=== PATIENT | female | born 1950 | race Caucasian/White ===

== ENCOUNTER 2017-01-22 15:32 | Emergency (ER) | payer MEDICARE ==
[~2017-01-22] VITALS: Ht 175.3 cm; Wt 62.0 kg
[~2017-01-22 15:32] MED LIST: ASPI81TA82 PO; BRIM.2%O OU; CARD240C6 PO; COUM5TAB PO; DORZ1SOL2 OU; FLEC50TA PO; LEVO75TA42 PO; METO25 PO; OXYB5TAB PO; PROT40TA PO; TORS20TA PO; ZOLO50TA PO
[2017-01-22 15:39] VITALS: BP 133/87; PULSE 82; RESP 15; TEMP 98; O2SAT 100
[2017-01-22] MEDS ORDERED: DOFE250 PO (15:51)
[2017-01-22] MEDS ORDERED: FLUT1INH INH (15:51)
[2017-01-22] MEDS ORDERED: WARF-23 PO (15:51)
[2017-01-22] MEDS ORDERED: LEVO75TA3 PO (15:51)
[2017-01-22] MEDS ORDERED: METO50TA PO (15:51)
[2017-01-22] MEDS ORDERED: OXYB5TAB10 PO (15:51)
[2017-01-22] MEDS ORDERED: SERT-132 PO (15:51)
[2017-01-22] MEDS ORDERED: TORS5TAB2 PO (15:51)
[2017-01-22] MEDS ORDERED: ASPI1TAB69 PO (15:51)
[2017-01-22] MEDS ORDERED: ACETAMINOPHEN/HYDROcodone 325 MG/5 MG TAB PO ONE (16:00)
--- NOTE | 2017-01-22 16:05 | PD ---
HPI Chief Complaint: Skin Problem Time Seen by Provider: 15:30 (Dorita Mcnair) Time Seen by Provider: 18:22 (Ponce Snyder MD) Travel History International Travel<30 days: No Contact w/Intl Traveler<30days: No Traveled to known affect area: No (Dorita Mcnair) International Travel<30 days: No Contact w/Intl Traveler<30days: No (Ponce Snyder MD) History of Present Illness HPI 66-year-old female presents to the emergency room for evaluation of hard, painful to her left medial antecubital space. Patient had an IV placed 11 [address] scan and states since then she has had increasing swelling in the area. The pain was manageable until yesterday when it became significantly worse. Pain is exacerbated with any range of motion of the left arm. It starts in the antecubital space and radiates downward and up to her shoulder. She denies paresthesias. She has not taken anything or done anything for her symptoms. She applied ice once but states it did not seem to help. She denies fever, chills, nausea, and vomiting. Patient takes Coumadin for A. fib, valve, and aneurysms. (Dorita Mcnair) HPI Please refer to TREVOR note. (Ponce Snyder MD) PFSH Past Medical History Hx Anticoagulant Therapy: Yes Arthritis: Yes Atrial Fibrillation: Yes Autoimmune Disease: No Blood Disorders: No Heart Rhythm Problems: Yes Cancer: No Cardiac Catheterization: Yes Cardiovascular Problems: Yes High Cholesterol: No Chest Pain: No Congestive Heart Failure: No Coronary Artery Disease: Yes Diabetes: No Diminished Hearing: No Endocrine: No Gastrointestinal Disorders: Yes Glaucoma: Yes Genitourinary: No Hepatitis: No Hiatal Hernia: No Hypertension: Yes Immune Disorder: No Musculoskeletal: No Neurologic: No Psychiatric: No Reproductive: No Respiratory: Yes Immunizations Current: Yes Myocardial Infarction: No Thyroid Disease: Yes Influenza Vaccination: Yes ?: Not Menopausal: Yes Tubal Ligation: Yes (Dorita Mcnair) Past Surgical History Abdominal Aneurysm Repair: Yes (AORTIC ANEURYSM REPAIR DECEMBER 2006) Abdominal Surgery: Yes (THORACIC, AORTIC ANEURYSM REPAIR) AICD: Yes (PACEMAKER DEFIB) Cardiac Surgery: Yes (AICD PLACEMENT) Ear Surgery: No Endocrine Surgery: No Eye Surgery: No Genitourinary Surgery: No Neurologic Surgery: No Oral Surgery: No Pacemaker: Yes Thoracic Surgery: Yes (ASCENDING THORACIC ANEURYSM REPAIR) Valve Replacement: Yes (AORTIC VALVE REPLACEMENT) Other Surgery: Yes (TUBILATION, AOTIC VALVE REPLACEMENT) (Dorita Mcnair) Family History Family Myocardial Infarction: Yes (dad and brother) (Dorita Mcnair) Social History Alcohol Use: Yes ([facility]) Tobacco Use: No Substance Use: No (Dorita Mcnair) Allergies-Medications (Allergen,Severity, Reaction): Coded Allergies: Rocephin (Verified Allergy, Severe, RASH/HIVES, 01/22/17) Reported Meds & Prescriptions Reported Meds & Active Scripts Active Clindamycin (Clindamycin HCl) 150 Mg Cap 450 Mg PO Q8HR 10 Days Percocet (Oxycodone-Acetaminophen) 5-325 mg Tab 2 Tab PO Q6H PRN Reported Breo Ellipta Inh (Fluticasone/Vilanterol) 100-25 Mcg/Act Inh 1 Puff INH DAILY Use daily at the same time. Aspirin 81 Mg Tabdr 81 Mg PO DAILY Sertraline (Sertraline HCl) 50 Mg Tab 50 Mg PO DAILY Warfarin 5 Mg Tab 5 Mg PO DAILY Torsemide 5 Mg Tab 5 Mg PO DAILY Levothyroxine (Levothyroxine Sodium) 75 Mcg Tab 75 Mcg PO DAILY Ditropan (Oxybutynin Chloride) 5 Mg Tab 5 Mg PO Q12HR Metoprolol Tartrate 50 Mg Tab 50 Mg PO BID Tikosyn (Dofetilide) 250 Mcg Cap 250 Mcg PO BID For Creatinine Clearance 40-60 mL/min (Ponce Snyder MD) Review of Systems Except as stated in HPI: all other systems reviewed are Neg (Dorita Mcnair) Physical Exam Narrative GENERAL: Well-nourished, well-developed female in no acute distress. Afebrile. Ambulatory. SKIN: Focused skin assessment warm/dry. There is an indurated area in the left antecubital space which measures about 4 cm in diameter. There is no erythema, fluctuance, or lymphangitis. It is extremely tender to palpation. HEAD: Normocephalic. EYES: No scleral icterus. No injection or drainage. NECK: Supple, trachea midline. No JVD or lymphadenopathy. CARDIOVASCULAR: Regular rate and rhythm without murmurs, gallops, or rubs. RESPIRATORY: Breath sounds equal bilaterally. No accessory muscle use. EXTREMITY: Left antecubital space tender to palpation. Limited range of motion secondary to pain. There is a large for secondary area of induration. 2+ radial pulse. (Dorita Mcnair) Narrative Approx 4 cm area of swelling and induration is minimal ecchymosis just proximal and medial to the antecubital fossa on the left side. 2+ radial artery pulse bilaterally. median/radial/ulnar nerve sensory distributions intact. (Ponce Snyder MD) Data Data Last Documented VS Vital Signs Date Time Temp Pulse Resp B/P Pulse Ox O2 Delivery O2 Flow Rate FiO2 01/22/17 17:40 90 16 152/94 97 01/22/17 15:39 98.0 (Ponce Snyder MD) Orders Acetamin-Hydrocod 325-5 Mg ([place] 5-325 (01/22/17 16:00) Us Arm Venous Doppler (01/22/17 ) Prothrombin Time / Inr (Pt) (01/22/17 17:38) ^ Jmain Bandage (01/22/17 18:22) Ice/Cold Pack (01/22/17 18:22) (Ponce Snyder MD) Labs Laboratory Tests Test 01/22/17 17:45 Prothrombin Time 31.9 SEC Prothromb Time International 2.8 RATIO Ratio (Ponce Snyder MD) Labs Laboratory Tests Test 01/22/17 17:45 Prothrombin Time 31.9 SEC Prothromb Time International 2.8 RATIO Ratio (Dorita Mcnair) MDM Medical Decision Making Medical Screen Exam Complete: Yes Emergency Medical Condition: Yes Medical Record Reviewed: Yes Differential Diagnosis Hematoma versus abscess versus compartment syndrome unlikely Narrative Course 66-year-old female presents to the emergency room for evaluation of painful hard area to her left antecubital space. She first noticed 11 days after having an IV placed but states it didn't become painful until yesterday. Patient denies fever, chills, nausea, vomiting. Since stable. Resting comfortably in bed. Left upper extremity as her respiratory treatment with radial pulse. Limited range of motion secondary to pain. There is a 4 cm area of induration left and acute. It is extremely tender to palpation. No evidence of infection. No erythema, lymphangitis, inflammation, or warmth. Ultrasound shows evidence of possible abscess or hematoma. Given history and physical exam this is likely hematoma. Patient is on Coumadin and therapeutic at 2.8. I spoke to my attending physician, Dr. Snyder, who assessed the patient and agree she is stable for outpatient follow-up. She will be placed on pain medication and antibiotics and told to follow up with a primary care physician or return to the emergency room forcing symptoms. She understands and agrees to this plan. (Dorita Mcnair) Medical Screen Exam Complete: Yes Emergency Medical Condition: Yes Differential Diagnosis hematoma, abscess, compartment syndrome, neurovascular compromise Narrative Course Last 24 hours Impressions Upper Extremity Ultrasound 01/22/17 0000 Signed Impressions: Service Date/Time: Sunday, January 22, 2017 16:10 - CONCLUSION: 1. Negative for deep venous thrombosis. There is a mixed echogenicity mass in the left antecubital fossa measuring up to 6.1 x 2.7 x 2.2 cm. This could represent inflammatory phlegmonous mass or hematoma. Benji Cummings MD INR 2.9 Ice pain control elevation and discussed. The patient likely has a hematoma. She is to continue with current warfarin as scheduled. Jamin wrap as tolerated. Abscess is considered much much less likely. Patient has drug interactions with Bactrim and is allergic to cephalosporin so we'll provide a course of clindamycin for any potential cellulitis or abscess formation. Return precautions discussed. (Ponce Snyder MD) Diagnosis Primary Impression: Hematoma Referrals: Primary Care Physician 2 days Additional Instructions: You have a choice when it comes to health care, and we are glad that you chose [facility]. Hopefully, we have met your expectations on today's visit. You are welcome to return to [facility] at any time, as we are committed to meeting the health care needs of our community. Med/Other Pt SpecificInfo: Prescription(s) given (Ponce Snyder MD) Scripts Clindamycin 150 Mg Neg213 Mg PO Q8HR 10 Days Ref 0 Prov:Ponce Snyder MD 01/22/17 Oxycodone-Acetaminophen (Percocet)5-325 mg Tab2 Tab PO Q6H PRN (PAIN SCALE 6 TO 10) #20 TAB Ref 0 Prov:Ponce Snyder MD 01/22/17 Disposition: 01 DISCHARGE HOME Condition: Stable Dorita Mcnair January 22, 2017 16:05 Ponce Snyder MD January 22, 2017 18:27
--- NOTE | 2017-01-22 17:12 | RADHPO ---
EXAM DATE/TIME: 01/22/2017 16:10 [facility] COMPARISON: No previous studies available for comparison. INDICATIONS : Left arm pain. Patient had IV in left arm the end of December at [facility] for a CT Scan. MEDICAL HISTORY : Hypertension. Thyroid disease. Descending aortic aneurysm. SURGICAL HISTORY : AICD. Aortic valve replacement. Descending aortic aneurysm repair. ENCOUNTER: Initial ACUITY: 2 day PAIN SCORE: 8/10 LOCATION: Left arm. FINDINGS: There is spontaneous flow documented in the brachial, basilic, cephalic, axillary, and subclavian vei ns. The vessels are compressible and augmentation response is documented. No filling defects are se en. The flow is phasic with respiration. Direction of flow in the jugular vein is caudal. CONCLUSION: 1. Negative for deep venous thrombosis. There is a mixed echogenicity mass in the left antecubital fo ssa measuring up to 6.1 x 2.7 x 2.2 cm. This could represent inflammatory phlegmonous mass or hematom a. Benji Cummings MD on January 22, 2017 at 17:09 Board Certified Radiologist. This report was verified electronically.
[2017-01-22 17:40] VITALS: BP 152/94; PULSE 90; RESP 16; O2SAT 97
[2017-01-22 18:06] LABS: INTERNATIONAL NORMALIZED RATIO 2.8 RATIO; PROTHROMBIN TIME - PATIENT 31.9 SEC (9.8-11.6)
[2017-01-22] MEDS ORDERED: CLIN1CAP5 PO (18:24)
[2017-01-22] MEDS ORDERED: PERC5TAB12 PO (18:24)
--- NOTE | 2017-01-22 18:25 | PD ---
Data Data Last Documented VS Vital Signs Date Time Temp Pulse Resp B/P Pulse Ox O2 Delivery O2 Flow Rate FiO2 01/22/17 17:40 90 16 152/94 97 01/22/17 15:39 98.0 Orders Acetamin-Hydrocod 325-5 Mg ([place] 5-325 (01/22/17 16:00) Us Arm Venous Doppler (01/22/17 ) Prothrombin Time / Inr (Pt) (01/22/17 17:38) Labs Laboratory Tests Test 01/22/17 17:45 Prothrombin Time 31.9 SEC Prothromb Time International 2.8 RATIO Ratio [facility] Medical Record Reviewed: Yes Supervised Visit with TREVOR: Yes Narrative Course INR 2.8 The patient is resting comfortably and feels better, is alert and in no distress. The patients results and examination findings were discussed. The repeat examination is unremarkable and benign. The history, exam, diagnostic testing, and current condition do not suggest any significant pathology to warrant further testing, continued ED treatment, admission, or surgical evaluation at this point. The vital signs have been stable. The patient does not have uncontrollable pain, intractable vomiting, or other significant symptoms. The patient's condition is stable and appropriate for discharge. The patient will pursue further outpatient evaluation with a primary care physician or other designated or consulting physician as indicated in the discharge instructions. The patient expressed understanding and was agreeable with this plan. Diagnosis Primary Impression: Hematoma Referrals: DR ANGELA Townsend 2 days Additional Instruction: You have a choice when it comes to health care, and we are glad that you chose [facility]. Hopefully, we have met your expectations on today's visit. You are welcome to return to [facility] at any time, as we are committed to meeting the health care needs of our community. Med/Other Pt SpecificInfo: Prescription(s) given Scripts Clindamycin 150 Mg [id number] Mg PO Q8HR 10 Days Ref 0 Prov:Ponce Snyder MD 01/22/17 Oxycodone-Acetaminophen (Percocet)5-325 mg Tab2 Tab PO Q6H PRN (PAIN SCALE 6 TO 10) #20 TAB Ref 0 Prov:Ponce Snyder MD 01/22/17 Disposition: 01 DISCHARGE HOME Condition: Stable Ponce Snyder MD January 22, 2017 18:25
== END 2017-01-22 18:40 | disposition home or self-care (01) ==
LOC: PHEFT 15:32
DX: S50.12XA Contusion of left forearm, initial encounter (principal); I48.91 Unspecified atrial fibrillation; I25.10 Atherosclerotic heart disease of native coronary artery without angina pectoris; I10 Essential (primary) hypertension; E07.9 Disorder of thyroid, unspecified; Z95.0 Presence of cardiac pacemaker; Z79.01 Long term (current) use of anticoagulants
CPT/HCPCS: 85610; 93971

== ENCOUNTER 2017-02-09 06:26 | Inpatient (IN) | payer MEDICARE ==
[2017-02-09] VITALS (15 sets, daily range): BP systolic 96–112; BP diastolic 50–73; PULSE 92–146; RESP 16–25; TEMP 97.7–99.1; O2SAT 91–100
[~2017-02-09] VITALS: Ht 175.3 cm; Wt 63.0 kg
[~2017-02-09 06:26] MED LIST changes: +ASPI1TAB69 PO; -ASPI81TA82 PO; -BRIM.2%O OU; -CARD240C6 PO; +CLIN1CAP5 PO; -COUM5TAB PO; +DOFE250 PO; -DORZ1SOL2 OU; -FLEC50TA PO; +FLUT1INH INH; +LEVO75TA3 PO; -LEVO75TA42 PO; -METO25 PO; +METO50TA PO; -OXYB5TAB PO; +OXYB5TAB10 PO; +PERC5TAB12 PO; -PROT40TA PO; +SERT-132 PO; -TORS20TA PO; +TORS5TAB2 PO; +WARF-23 PO; -ZOLO50TA PO
[2017-02-09] MEDS ORDERED: OXYBXL5 PO (06:45)
[2017-02-09] MEDS ORDERED: DILTIAZEM HCL 25 MG/5 ML VIAL IV PUSH ONE (06:45)
[2017-02-09] MEDS ORDERED: ASPI81CH CHEW (06:45)
[2017-02-09] MEDS ORDERED: SODIUM CHLORIDE 0.9% FLUSH 10 ML FLUSH IVF PRN (06:45)
--- NOTE | 2017-02-09 06:57 | PD ---
HPI Chief Complaint: Respiratory Symptoms Time Seen by Provider: 06:41 Travel History International Travel<30 days: No Contact w/Intl Traveler<30days: No Traveled to known affect area: No History of Present Illness HPI 66yo F with PMH of CAD with left main aneurysm, Vfib s/p AICD, aortic insufficiency s/p aortic valve replacement, hypothyroidism, HTN, s/p ascending aortic aneurysm repair, paroxysmal afib on coumadin presents to the ED with c/o palpitations and feeling her heart race since last night. Pt has also been feeling sob. She was recently diagnosed with pneumonia and just started levaquin yesterday. 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 +Productive cough for 10 days. +Nausea. Denies any fever, chest pain, vomiting, abdominal pain, focal weakness or numbness. PFSH Past Medical History Hx Anticoagulant Therapy: Yes (warfarin) Arthritis: Yes Atrial Fibrillation: Yes Autoimmune Disease: No Blood Disorders: No Heart Rhythm Problems: Yes Cancer: No Cardiac Catheterization: Yes Cardiovascular Problems: Yes High Cholesterol: No Chest Pain: No Congestive Heart Failure: No Coronary Artery Disease: Yes Diabetes: No Diminished Hearing: No Endocrine: No Gastrointestinal Disorders: Yes Glaucoma: Yes Genitourinary: No Hepatitis: No Hiatal Hernia: No Hypertension: Yes Immune Disorder: No Musculoskeletal: No Neurologic: No Psychiatric: No Reproductive: No Respiratory: Yes Immunizations Current: Yes Myocardial Infarction: No Thyroid Disease: Yes ?: Not Menopausal: Yes Tubal Ligation: Yes Past Surgical History Abdominal Aneurysm Repair: Yes (AORTIC ANEURYSM REPAIR DECEMBER 2006) Abdominal Surgery: Yes (THORACIC, AORTIC ANEURYSM REPAIR) AICD: Yes (PACEMAKER DEFIB) Cardiac Surgery: Yes (AICD PLACEMENT) Ear Surgery: No Endocrine Surgery: No Eye Surgery: No Genitourinary Surgery: No Neurologic Surgery: No Oral Surgery: No Pacemaker: Yes Thoracic Surgery: Yes (ASCENDING THORACIC ANEURYSM REPAIR) Valve Replacement: Yes (AORTIC VALVE REPLACEMENT) Other Surgery: Yes (TUBILATION, AOTIC VALVE REPLACEMENT) Family History Family Myocardial Infarction: Yes (dad and brother) Social History Alcohol Use: Yes (occ) Tobacco Use: No Substance Use: No Allergies-Medications (Allergen,Severity, Reaction): Coded Allergies: Rocephin (Verified Allergy, Severe, RASH/HIVES, 02/09/17) Reported Meds & Prescriptions Reported Meds & Active Scripts Active Reported Ditropan XL 24 HR (Oxybutynin Chloride) 5 Mg Tab 5 Mg PO DAILY Aspirin 81 Mg Chew 81 Mg CHEW DAILY Breo Ellipta Inh (Fluticasone/Vilanterol) 100-25 Mcg/Act Inh 1 Puff INH DAILY Use daily at the same time. Sertraline (Sertraline HCl) 50 Mg Tab 50 Mg PO DAILY Warfarin 5 Mg Tab 5 Mg PO DAILY Torsemide 5 Mg Tab 5 Mg PO DAILY Levothyroxine (Levothyroxine Sodium) 75 Mcg Tab 75 Mcg PO DAILY Metoprolol Tartrate 50 Mg Tab 50 Mg PO BID Tikosyn (Dofetilide) 250 Mcg Cap 250 Mcg PO BID For Creatinine Clearance 40-60 mL/min Review of Systems Except as stated in HPI: all other systems reviewed are Neg Physical Exam Narrative GENERAL: 66yo F in moderate distress. SKIN: Focused skin assessment warm/dry. HEAD: Atraumatic. Normocephalic. EYES: Pupils equal and round. No scleral icterus. No injection or drainage. ENT: No nasal bleeding or discharge. Mucous membranes pink and moist. NECK: Trachea midline. No JVD. CARDIOVASCULAR: Irregular and tachycardic. CHEST WALL: +AICD. RESPIRATORY: + accessory muscle use. Clear to auscultation. Breath sounds equal bilaterally. GASTROINTESTINAL: Abdomen soft, non-tender, nondistended. Hepatic and splenic margins not palpable. MUSCULOSKELETAL: No obvious deformities. No clubbing. No cyanosis. No edema. NEUROLOGICAL: Awake and alert. No obvious cranial nerve deficits. Motor grossly within normal limits. Normal speech. PSYCHIATRIC: Appropriate mood and affect; insight and judgment normal. Data Data Last Documented VS Vital Signs Date Time Temp Pulse Resp B/P Pulse Ox O2 Delivery O2 Flow Rate FiO2 02/09/17 07:30 95 Room Air 02/09/17 07:13 131 18 109/69 02/09/17 06:54 2 02/09/17 06:29 99.0 Orders Diltiazem Inj (Cardizem Inj) (02/09/17 06:45) Complete Blood Count With Diff (02/09/17 06:43) Basic Metabolic Panel (Bmp) (02/09/17 06:43) Act Partial Throm Time (Ptt) (02/09/17 06:43) Prothrombin Time / Inr (Pt) (02/09/17 06:43) Magnesium (Mg) (02/09/17 06:43) Ckmb (Isoenzyme) Profile (02/09/17 06:43) Troponin I (02/09/17 06:43) Iv Access Insert/Monitor (02/09/17 06:43) Ecg Monitoring (02/09/17 06:43) Oximetry (02/09/17 06:43) Oxygen Administration (02/09/17 06:43) Chest, Single Ap (02/09/17 06:43) Sodium Chloride 0.9% Flush (Ns Flush) (02/09/17 06:45) Lactic Acid Sepsis Protocol (02/09/17 06:44) Blood Culture (02/09/17 06:44) Diltiazem Inj (Cardizem Inj) (02/09/17 07:00) Electrocardiogram (02/09/17 ) Sodium Chlor 0.9% 1000 Ml Inj (Ns 1000 M (02/09/17 07:15) Diltiazem Inj (Cardizem Inj) (02/09/17 07:30) Urinalysis - C+S If Indicated (02/09/17 07:46) Aztreonam Inj (Azactam Inj) (02/09/17 08:01) Levofloxacin 750 Mg Premix Inj (Levaquin (02/09/17 08:01) Consult Cardiology (02/09/17 ) Echo 2d Comp With Doppler (02/09/17 ) Admit Order (Ed Use Only) (02/09/17 08:41) Vital Signs (Adult) Q4H (02/09/17 08:41) Activity Bed Rest With Brp (02/09/17 08:41) Senior Radiation Therapist / Telemetry .CONTINUOUS (02/09/17 08:41) Diet Heart Healthy (02/09/17 Breakfast) Sodium Chloride 0.9% Flush (Ns Flush) (02/09/17 08:45) Sodium Chloride 0.9% Flush (Ns Flush) (02/09/17 09:00) Acetaminophen (Tylenol) (02/09/17 08:45) Ondansetron Inj (Zofran Inj) (02/09/17 08:45) Basic Metabolic Panel (Bmp) (02/10/17 06:00) Complete Blood Count With Diff (02/10/17 06:00) Prothrombin Time / Inr (Pt) (02/10/17 06:00) Naloxone Inj (Narcan Inj) (02/09/17 08:45) Docusate Sodium-Senna (Anitha-Colace) (02/09/17 09:00) Magnesium Hydroxide Liq (Milk Of Magnesi (02/09/17 08:45) Sennosides (Senokot) (02/09/17 08:45) Bisacodyl Supp (Dulcolax Supp) (02/09/17 08:45) Lactulose Liq (Lactulose Liq) (02/09/17 08:45) Aztreonam Inj (Azactam Inj) (02/09/17 16:00) Labs Laboratory Tests Test 02/09/17 02/09/17 06:45 06:50 White Blood Count 16.0 TH/MM3 Red Blood Count 4.97 MIL/MM3 Hemoglobin 13.4 GM/DL Hematocrit 40.5 % Mean Corpuscular Volume 81.4 FL Mean Corpuscular Hemoglobin 26.9 PG Mean Corpuscular Hemoglobin 33.0 % Concent Red Cell Distribution Width 17.0 % Platelet Count 367 TH/MM3 Mean Platelet Volume 8.4 FL Neutrophils (%) (Auto) 81.9 % Lymphocytes (%) (Auto) 7.0 % Monocytes (%) (Auto) 10.6 % Eosinophils (%) (Auto) 0.2 % Basophils (%) (Auto) 0.3 % Neutrophils # (Auto) 13.1 TH/MM3 Lymphocytes # (Auto) 1.1 TH/MM3 Monocytes # (Auto) 1.7 TH/MM3 Eosinophils # (Auto) 0.0 TH/MM3 Basophils # (Auto) 0.0 TH/MM3 CBC Comment DIFF FINAL Differential Comment Prothrombin Time 62.3 SEC Prothromb Time International 5.2 RATIO Ratio Activated Partial 47.8 SEC Thromboplast Time Sodium Level 133 MEQ/L Potassium Level 3.4 MEQ/L Chloride Level 98 MEQ/L Carbon Dioxide Level 28.5 MEQ/L Anion Gap 7 MEQ/L Blood Urea Nitrogen 14 MG/DL Creatinine 0.71 MG/DL Estimat Glomerular Filtration 82 ML/MIN Rate Random Glucose 104 MG/DL Calcium Level 9.0 MG/DL Magnesium Level 1.8 MG/DL Total Creatine Kinase 23 U/L Troponin I LESS THAN 0.02 NG/ML Lactic Acid Level 1.2 mmol/L MDM Medical Decision Making Medical Screen Exam Complete: Yes Emergency Medical Condition: Yes Interpretation(s) EKG: Afib 136bpm. Normal axis. Differential Diagnosis Afib RVR vs. pneumonia vs. ACS Narrative Course 66yo F with history of afib with palpitation found to be in afib RVR in the 140s. Pt given 15mg IV cardizem and heart rate decreased to 120s. Another 20mg cardizem IV was ordered but was not given due to low blood pressure. Pt given NS IVF. Pt was seen at the change of shift so care was transferred to the oncoming physician. Diagnosis Primary Impression: Atrial fibrillation with RVR Radha Briggs DO February 09, 2017 06:57
[2017-02-09] MEDS ORDERED: DILTIAZEM HCL 25 MG/5 ML VIAL IV ONE ×2 (07:00→09:45)
[2017-02-09 07:04] LABS: AUTOMATED NEUTROPHIL # 13.1 TH/MM3 (1.8-7.7); BASOPHIL % 0.3 % (0.0-2.0); EOSINOPHIL % 0.2 % (0.0-4.0); HEMATOCRIT 40.5 % (35.0-46.0); HEMO FLAGS DIFF FINAL; LYMPHOCYTE # 1.1 TH/MM3 (1.0-4.8); MEAN CELL VOLUME 81.4 FL (80.0-100.0); MEAN CORPUSCULAR HEMOGLOBIN 26.9 PG (27.0-34.0); MONO % 10.6 % (0.0-8.0); NEUT % 81.9 % (16.0-70.0); PLATELET COUNT 367 TH/MM3 (150-450); RED BLOOD COUNT 4.97 MIL/MM3 (4.00-5.30)
[2017-02-09] MEDS ORDERED: SODIUM CHLOR 0.9% 1000 ML INJ 1,000 ML IV ONE (07:15)
[2017-02-09 07:17] LABS: APTT (PATIENT) 47.8 SEC (24.3-30.1); INTERNATIONAL NORMALIZED RATIO 5.2 RATIO; PROTHROMBIN TIME - PATIENT 62.3 SEC (9.8-11.6)
--- NOTE | 2017-02-09 07:30 | RADRPT ---
EXAM DATE/TIME: 02/09/2017 07:16 [facility] COMPARISON: CHEST SINGLE AP, April 05, 2016, 7:21. INDICATIONS : Short of breath MEDICAL HISTORY : Cardiovascular disease. Chronic obstructive pulmonary disease. Aneurysm descending aorta. SURGICAL HISTORY : Pacemaker. Valve replacement, aneurysm repair ENCOUNTER: Initial ACUITY: 3 days PAIN SCORE: 0/10 LOCATION: Bilateral chest FINDINGS: 2 AP erect views of the chest were obtained and again demonstrate the patient is status post median s ternotomy. There is coarse mild scarring at the lung bases with no new confluent infiltrates or effus ions. The heart size remains mildly prominent there are atherosclerotic changes in the aorta. The rig ht-sided transvenous pacer remains in place. CONCLUSION: 1. Scarring again noted with no definite acute cardiopulmonary disease. 2. Cardiomegaly and atherosclerotic changes. Nithin Cornell MD on February 09, 2017 at 7:25 Board Certified Radiologist. This report was verified electronically.
[2017-02-09 07:39] LABS: ANION GAP 7 MEQ/L (5-15); BICARBONATE 28.5 MEQ/L (21.0-32.0); BLOOD UREA NITROGEN 14 MG/DL (7-18); CHLORIDE 98 MEQ/L (98-107); GLOMERULAR FILTRATION RATE 82 ML/MIN (>89); MAGNESIUM 1.8 MG/DL (1.5-2.5); POTASSIUM 3.4 MEQ/L (3.5-5.1); SODIUM (NA) 133 MEQ/L (136-145)
[2017-02-09 07:49] LABS: CREATINE KINASE 23 U/L (26-192)
[2017-02-09] MEDS ORDERED: LEVOFLOXACIN 750 MG PREMIX INJ 150 ML IV STA (08:01)
[2017-02-09] MEDS ORDERED: AZTREONAM INJ 2,000 MG in SODIUM CHLORIDE 0.9% INJ 100 ML IV STA (08:01)
--- NOTE | 2017-02-09 08:01 | PD ---
Physical Exam Narrative GENERAL: Well-nourished, well-developed patient. SKIN: Warm and dry. HEAD: Normocephalic and atraumatic. EYES: No injection or drainage. ENT: No nasal drainage noted. NECK: Supple, trachea midline. CARDIOVASCULAR:irregular rate and rhythm RESPIRATORY:mild increased effort. No accessory muscle use. GASTROINTESTINAL: Abdomen soft, non-tender, nondistended. EXTREMITIES: No edema. NEUROLOGICAL: Awake and alert. moves all extremities. Normal speech. Data Data Last Documented VS Vital Signs Date Time Temp Pulse Resp B/P Pulse Ox O2 Delivery O2 Flow Rate FiO2 02/09/17 07:30 95 Room Air 02/09/17 07:13 131 18 109/69 02/09/17 06:54 2 02/09/17 06:29 99.0 Orders Diltiazem Inj (Cardizem Inj) (02/09/17 06:45) Complete Blood Count With Diff (02/09/17 06:43) Basic Metabolic Panel (Bmp) (02/09/17 06:43) Act Partial Throm Time (Ptt) (02/09/17 06:43) Prothrombin Time / Inr (Pt) (02/09/17 06:43) Magnesium (Mg) (02/09/17 06:43) Ckmb (Isoenzyme) Profile (02/09/17 06:43) Troponin I (02/09/17 06:43) Iv Access Insert/Monitor (02/09/17 06:43) Ecg Monitoring (02/09/17 06:43) Oximetry (02/09/17 06:43) Oxygen Administration (02/09/17 06:43) Chest, Single Ap (02/09/17 06:43) Sodium Chloride 0.9% Flush (Ns Flush) (02/09/17 06:45) Lactic Acid Sepsis Protocol (02/09/17 06:44) Blood Culture (02/09/17 06:44) Diltiazem Inj (Cardizem Inj) (02/09/17 07:00) Electrocardiogram (02/09/17 ) Sodium Chlor 0.9% 1000 Ml Inj (Ns 1000 M (02/09/17 07:15) Diltiazem Inj (Cardizem Inj) (02/09/17 07:30) Urinalysis - C+S If Indicated (02/09/17 07:46) Aztreonam Inj (Azactam Inj) (02/09/17 08:01) Levofloxacin 750 Mg Premix Inj (Levaquin (02/09/17 08:01) Consult Cardiology (02/09/17 ) Echo 2d Comp With Doppler (02/09/17 ) Admit Order (Ed Use Only) (02/09/17 08:41) Vital Signs (Adult) Q4H (02/09/17 08:41) Activity Bed Rest With Brp (02/09/17 08:41) Requisition Approver / Telemetry .CONTINUOUS (02/09/17 08:41) Diet Heart Healthy (02/09/17 Breakfast) Sodium Chloride 0.9% Flush (Ns Flush) (02/09/17 08:45) Sodium Chloride 0.9% Flush (Ns Flush) (02/09/17 09:00) Acetaminophen (Tylenol) (02/09/17 08:45) Ondansetron Inj (Zofran Inj) (02/09/17 08:45) Basic Metabolic Panel (Bmp) (02/10/17 06:00) Complete Blood Count With Diff (02/10/17 06:00) Prothrombin Time / Inr (Pt) (02/10/17 06:00) Naloxone Inj (Narcan Inj) (02/09/17 08:45) Docusate Sodium-Senna (Anitha-Colace) (02/09/17 09:00) Magnesium Hydroxide Liq (Milk Of Magnesi (02/09/17 08:45) Sennosides (Senokot) (02/09/17 08:45) Bisacodyl Supp (Dulcolax Supp) (02/09/17 08:45) Lactulose Liq (Lactulose Liq) (02/09/17 08:45) Aztreonam Inj (Azactam Inj) (02/09/17 16:00) Labs Laboratory Tests Test 02/09/17 02/09/17 06:45 06:50 White Blood Count 16.0 TH/MM3 Red Blood Count 4.97 MIL/MM3 Hemoglobin 13.4 GM/DL Hematocrit 40.5 % Mean Corpuscular Volume 81.4 FL Mean Corpuscular Hemoglobin 26.9 PG Mean Corpuscular Hemoglobin 33.0 % Concent Red Cell Distribution Width 17.0 % Platelet Count 367 TH/MM3 Mean Platelet Volume 8.4 FL Neutrophils (%) (Auto) 81.9 % Lymphocytes (%) (Auto) 7.0 % Monocytes (%) (Auto) 10.6 % Eosinophils (%) (Auto) 0.2 % Basophils (%) (Auto) 0.3 % Neutrophils # (Auto) 13.1 TH/MM3 Lymphocytes # (Auto) 1.1 TH/MM3 Monocytes # (Auto) 1.7 TH/MM3 Eosinophils # (Auto) 0.0 TH/MM3 Basophils # (Auto) 0.0 TH/MM3 CBC Comment DIFF FINAL Differential Comment Prothrombin Time 62.3 SEC Prothromb Time International 5.2 RATIO Ratio Activated Partial 47.8 SEC Thromboplast Time Sodium Level 133 MEQ/L Potassium Level 3.4 MEQ/L Chloride Level 98 MEQ/L Carbon Dioxide Level 28.5 MEQ/L Anion Gap 7 MEQ/L Blood Urea Nitrogen 14 MG/DL Creatinine 0.71 MG/DL Estimat Glomerular Filtration 82 ML/MIN Rate Random Glucose 104 MG/DL Calcium Level 9.0 MG/DL Magnesium Level 1.8 MG/DL Total Creatine Kinase 23 U/L Troponin I LESS THAN 0.02 NG/ML Lactic Acid Level 1.2 mmol/L [facility] Supervised Visit with TREVOR: No Interpretation(s) INR supratherapeutic CBC & BMP Diagram 02/09/17 06:45 Last 24 hours Impressions Chest X-Ray 02/09/17 0643 Signed Impressions: Service Date/Time: January 07:16 - CONCLUSION: 1. Scarring again noted with no definite acute cardiopulmonary disease. 2. Cardiomegaly and atherosclerotic changes. Nithin Cornell MD Narrative Course 66-year-old female states yesterday she started Levaquin after having an outpatient chest x-ray that diagnosed pneumonia 2 days ago. She states she's been having palpitations and still not feeling good so she elected to come in. Her chest x-ray shows no significant signs of pneumonia and Levaquin will need to be continued. Aztreonam will also be added given elevated white count and tachycardia setting. Prior to my arrival she was given 15mg of Cardizem which took her heart rate from the 140s to the 120s but also lowered her blood pressure. She has no signs of congestive heart failure so she was given an IV fluid bolus. Will start Cardizem drip and hold second dose of Cardizem bolus to prevent hypotension and will continue IV fluid hydration. She'll be admitted to the hospital for further care. She agrees to plan of care On interrogation patient in atrial fibrillation for the past 19 hours. Cardizem drip running. She'll be going to the [facility] Critical Care Narrative Aggregate critical care time was 31 minutes. Time to perform other separately billable procedures was not included in the critical care time. My time did not include minutes spent treating any other patients simultaneously or on activities that did not directly contribute to the patient's treatment. The services I provided to this patient were to treat and/or prevent clinically significant deterioration that could result in: Hypotension, persistent tachycardia I provided critical care services requiring my management, as noted below: Chart data review, documentation time, medication orders and management, vital sign assessments/reviewing monitor data, ordering and reviewing lab tests, ordering and interpreting/reviewing x-rays and diagnostic studies, care of the patient and discussion of the patient with the admitting physicians. Sepsis Criteria SIRS Criteria (2 or more): Heart rate over 90, WBC > 07310, < 4000 or > 10% bands Sepsis Criteria (SIRS+source): Infect source susp/known Criteria Outcome: Meets sepsis criteria Physician Communication Physician Communication dr moser states if possible to hold levaquin given on tikayn and will follow and requests sonal greer states to admit to dr cormier and will hold levaquin and monitor in cic Diagnosis Primary Impression: Atrial fibrillation with RVR Additional Impressions: Sepsis Qualified Code: A41.9 - Sepsis, due to unspecified organism Supratherapeutic INR Admitting Information Admitting Physician Requests: Admit Jazmine Shaikh MD February 09, 2017 08:01
[2017-02-09] MEDS: DILTIAZEM INJ 125 MG in SODIUM CHLORIDE 0.9% INJ 100 ML IV SCH ×2 (08:15→18:23)
[2017-02-09] MEDS ORDERED: MAGNESIUM HYDROXIDE SUSP 30 ML CUP PO PRN (08:45)
[2017-02-09] MEDS ORDERED: NALOXONE HCL 0.4 MG/ML AMP IV PRN (08:45)
[2017-02-09] MEDS ORDERED: SODIUM CHLORIDE 0.9% FLUSH 10 ML FLUSH IV FLUSH PRN (08:45)
[2017-02-09] MEDS ORDERED: SENNOSIDES 8.6 MG TAB PO PRN (08:45)
[2017-02-09] MEDS ORDERED: ONDANSETRON HCL 4 MG/2 ML VIAL IVP PRN (08:45)
[2017-02-09] MEDS ORDERED: ACETAMINOPHEN 325 MG TAB PO PRN (08:45)
[2017-02-09] MEDS ORDERED: LACTULOSE SYRUP 20 GM/30 ML CUP PO PRN (08:45)
[2017-02-09] MEDS ORDERED: BISACODYL 10 MG SUPP RECTAL PRN (08:45)
[2017-02-09] MEDS ORDERED: TORSEMIDE 5 MG TAB PO SCH (09:00)
[2017-02-09] MEDS ORDERED: POTASSIUM CHLORIDE 25 MEQ EFFERVESCENT TAB PO ONE ×2 (09:00→09:45)
[2017-02-09] MEDS ORDERED: SODIUM CHLORID 0.9% IV STA (09:37)
[2017-02-09] MEDS ORDERED: MAGNESIUM SULFATE 1 GM PREMIX 100 ML IV ONE (10:00)
[2017-02-09] MEDS: DOCUSATE SODIUM 50 MG/SENNA 8.6 MG TAB PO SCH ×2 (10:13→21:06)
[2017-02-09] MEDS: SERTRALINE HCL 50 MG TAB PO SCH (10:13)
[2017-02-09] MEDS: ASPIRIN 81 MG CHEW TAB CHEW SCH (10:13)
[2017-02-09] MEDS: METOPROLOL TARTRATE 50 MG TAB PO SCH ×2 (10:14→21:06)
[2017-02-09] MEDS: TOLTERODINE TARTRATE 2 MG CAP LA PO SCH (10:14)
[2017-02-09] MEDS: DOFETILIDE 250 MCG CAP PO SCH ×2 (10:14→21:06)
[2017-02-09] MEDS: LEVOTHYROXINE SODIUM 75 MCG TAB PO SCH (10:14)
[2017-02-09] MEDS: FLUTICASONE 100 MCG/VILANTEROL 25 MCG INHALER INH SCH (10:15)
[2017-02-09] MEDS: SODIUM CHLORIDE 0.9% FLUSH 10 ML FLUSH IV FLUSH SCH ×2 (11:20→21:00)
--- NOTE | 2017-02-09 11:25 | HHI.HP ---
HPI Service [facility] Primary Care Physician Rossy Merino MD Admission Diagnosis atrial fibrillation with RVR Diagnoses: Chief Complaint: cough, palpitations Travel History International Travel<30 Days: No Contact w/Intl Traveler <30 Da: No Traveled to Known Affected Are: No History of Present Illness This a pleasant 66-year-old female with a history of descending thoracic aneurysm repair, aortic valve replacement on Coumadin, AICD placement, hypothyroid, hypertension, paroxysmal A. fib. Patient presented to the emergency room with complaint of palpitations since last night. Patient endorses that she was diagnosed with pneumonia 10 days ago, was put on a Medrol Dosepak and Zithromax. Indicates symptoms did not improve therefore she went back to her primary care who started her on Levaquin yesterday. Patient endorses feeling short of breath, has had a cough with sputum that is kauffman- brown.. No fever, no chills. Has had some nausea but no vomiting. Patient was evaluated in emergency room, laboratory workup was noted. CBC remarkable for leukocytosis, WBC 16. BMP remarkable for hyponatremia, sodium 133. Troponin was negative. Potassium 3.4. INR was supratherapeutic, 5.2. Patient was noted in A. fib with RVR, heart rate in the 140s. Cardizem 50 mg was given with blood pressure drop. She was given 500 cc bolus. Patient was eventually put on Cardizem drip. Patient is not evaluated in t the stepdown cardiac unit. Blood pressures in the 90s. Another 500 cc boluses currently in progress. Patient is on Tikosyn and has been on it since 2006 for A. fib. Because of possible interaction, Levaquin was not started. Patient was given Azactam in the emergency room which we will continue. Patient has been evaluated by Dr. Tamayo and her AICD has been interrogated and was found working appropriately. Patient is admitted for further evaluation and treatment. Review of Systems Constitutional: DENIES: Diaphoretic episodes, Fatigue, Fever, Weight gain, Weight loss, Chills, Dizziness, Change in appetite, Night Sweats Endocrine: DENIES: Abnorml menstrual pattern, Heat/cold intolerance, Polydipsia , Polyuria, Polyphagia Eyes: DENIES: Blurred vision, Diplopia, Eye inflammation, Eye pain, Vision loss , Photosensitivity, Double Vision Ears, nose, mouth, throat: DENIES: Tinnitus, Hearing loss, Vertigo, Nasal discharge, Oral lesions, Throat pain, Hoarseness, Ear Pain, Running Nose, Epistaxis, Sinus Pain, Toothache, Odynophagia Respiratory: COMPLAINS OF: Cough, Wheezing, Sputum production, Shortness of breath, DENIES: Apneas, Snoring, Hemoptysis Cardiovascular: COMPLAINS OF: Palpitations, DENIES: Chest pain, Syncope, Dyspnea on Exertion, PND, Lower Extremity Edema, Orthopnea, Claudication Gastrointestinal: DENIES: Abdominal pain, Black stools, Bloody stools, Constipation, Diarrhea, Nausea, Vomiting, Difficulty Swallowing, Anorexia Genitourinary: DENIES: Abnormal vaginal bleeding, Dysmenorrhea, Dyspareunia, Sexual dysfunction, Urinary frequency, Urinary incontinence, Urgency, Hematuria , Dysuria, Nocturia, Vaginal discharge Musculoskeletal: DENIES: Joint pain, Muscle aches, Stiffness, Joint Swelling, Back pain, Neck pain Integumentary: DENIES: Abnormal pigmentation, Pruritus, Rash, Nail changes, Breast masses, Breast skin changes, Nipple discharge Hematologic/lymphatic: DENIES: Bruising, Lymphadenopathy Immunologic/allergic: DENIES: Eczema, Urticaria Neurologic: DENIES: Abnormal gait, Headache, Localized weakness, Paresthesias, Seizures, Speech Problems, Tremor, Poor Balance Psychiatric: DENIES: Anxiety, Confusion, Mood changes, Depression, Hallucinations, Agitation, Suicidal Ideation, Homicidal Ideation, Delusions Past Family Social History Past Medical History 1. Coronary artery disease with left main aneurysm. 2. Atypical Mycobacterium avium pneumonia. 3. 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 The arrest occurred a few days after her thoracic aortic aneurysm surgery per pt. hx 4. Aortic insufficiency status post aortic valve replacement back in the late . 5. Hypothyroidism on replacement. 6. Hypertension. 7. Thoracic aortic aneurysms. 8. Paroxysmal atrial fibrillation. 9. Myositis. 10. Hepatic cysts. 11. Gastritis. 12. Dermatitis. 13. Osteopenia. Past Surgical History 1. The patient had aortic valve replacement with a [employer] mechanical valve back around 1997. 2. Subsequently had an ascending aortic aneurysm repair in 2005. 3. AICD Reported Medications Reported Meds & Active Scripts Active Reported Ditropan XL 24 HR (Oxybutynin Chloride) 5 Mg Tab 5 Mg PO DAILY Aspirin 81 Mg Chew 81 Mg CHEW DAILY Breo Ellipta Inh (Fluticasone/Vilanterol) 100-25 Mcg/Act Inh 1 Puff INH DAILY Use daily at the same time. Sertraline (Sertraline HCl) 50 Mg Tab 50 Mg PO DAILY Warfarin 5 Mg Tab 5 Mg PO DAILY Torsemide 5 Mg Tab 5 Mg PO DAILY Levothyroxine (Levothyroxine Sodium) 75 Mcg Tab 75 Mcg PO DAILY Metoprolol Tartrate 50 Mg Tab 50 Mg PO BID Tikosyn (Dofetilide) 250 Mcg Cap 250 Mcg PO BID For Creatinine Clearance 40-60 mL/min Allergies: Coded Allergies: Rocephin (Verified Allergy, Severe, RASH/HIVES, 02/09/17) Active Ordered Medications Inpatient Medications Acetaminophen (Tylenol) 650 mg Q4H PRN PO TEMP > 100.4; Start 02/09/17 at 08:45 Aspirin (Aspirin Chew) 81 mg DAILY CHEW Last administered on 02/09/17 10:13; Start 02/09/17 at 09:00 Aztreonam 2000 mg/ Sodium Chloride 100 ml @ 200 mls/hr ONCE STAT IV Last administered on 02/09/17 09:25; Start 02/09/17 at 08:01; Stop 02/09/17 at 08:30 ; Status DC Aztreonam/Sodium Chloride (Azactam Inj/NS Inj) 100 ml @ 200 mls/hr Q8H IV ; Start 02/09/17 at 16:00 Bisacodyl (Dulcolax Supp) 10 mg DAILY PRN RECTAL SEVERE CONSITIPATION; Start at 08:45 Diltiazem HCl (Cardizem Inj) 15 mg BOLUS ONCE IV PUSH Last administered on 06:47; Start 02/09/17 at 06:45; Stop 02/09/17 at 06:46; Status DC Diltiazem HCl 125 mg/Sodium Chloride 125 ml @ 0 mls/hr TITRATE IV Last administered on 02/09/17 08:15; Start 02/09/17 at 07:30 Diltiazem HCl 15 mg 15 mg ONCE ONCE IV ; Start 02/09/17 at 09:45; Stop at 09:46; Status DC Diltiazem HCl 20 mg 20 mg ONCE ONCE IV ; Start 02/09/17 at 07:00; Stop at 07:24; Status DC Dofetilide (Tikosyn) 250 mcg BID PO Last administered on 02/09/17 10:14; Start 02/09/17 at 09:00 Fluticasone/ Vilanterol (Breo Ellipta 100-25 Inh) 1 puff DAILY INH Last administered on 02/09/17 10:15; Start 02/09/17 at 09:00 Lactulose 30 ml 30 ml DAILY PRN PO SEVERE CONSITIPATION; Start 02/09/17 at 08: 45 Levofloxacin/ Dextrose (Levaquin 750 Mg Premix Inj) 150 ml @ 100 mls/hr ONCE STAT IV ; Start 02/09/17 at 08:01; Stop 02/09/17 at 08:41; Status DC Levothyroxine Sodium (Synthroid) 75 mcg DAILY@0600 PO Last administered on 02/09 10:14; Start 02/09/17 at 09:00 Magnesium Hydroxide (Milk Of Magnesia Liq) 30 ml Q12H PRN PO MILD - MODERATE CONSTIPATION; Start 02/09/17 at 08:45 Magnesium Sulfate/ Dextrose (Magnesium Sulfate 1 Gm Premix) 100 ml @ 100 mls/ hr ONCE ONCE IV Last administered on 02/09/17 11:19; Start 02/09/17 at 10:00 ; Stop 02/09/17 at 10:59; Status DC Metoprolol Tartrate (Lopressor) 50 mg BID PO Last administered on 02/09/17 10: 14; Start 02/09/17 at 09:00 Naloxone HCl (Narcan Inj) 0.4 mg UNSCH PRN IV SEE LABEL COMMENTS; Start at 08:45 Ondansetron HCl (Zofran Inj) 4 mg Q6H PRN IVP NAUSEA OR VOMITING; Start at 08:45 Potassium Bicarb/ Potassium Chloride (K-Lyte Cl Eff) 25 meq ONCE ONCE PO Last administered on 02/09/17 10:13; Start 02/09/17 at 09:45; Stop 02/09/17 at 09:46; Status DC Senna/Docusate Sodium (Anitha-Colace) 1 tab BID PO Last administered on 10:13; Start 02/09/17 at 09:00 Sennosides (Senokot) 17.2 mg Q12H PRN PO MODERATE - SEVERE CONSTIPATION; Start 02/09/17 at 08:45 Sertraline HCl (Zoloft) 50 mg DAILY PO Last administered on 02/09/17 10:13; Start 02/09/17 at 09:00 Sodium Chloride (NS Flush) 2 ml BID IV FLUSH Last administered on 02/09/17 11: 20; Start 02/09/17 at 09:00 Sodium Chloride/ Syringe / Bag (NS 500 ml Inj/ Syringe/Bag) 600 ml @ 1,200 mls/ hr BOLUS STAT IV Last administered on 02/09/17 10:01; Start 02/09/17 at 09:37 ; Stop 02/09/17 at 10:06; Status DC Tolterodine Tartrate 2 mg 2 mg DAILY PO Last administered on 02/09/17 10:14; Start 02/09/17 at 09:00 Torsemide (Demadex) 5 mg DAILY PO Last administered on 02/09/17 10:14; Start 02/09/17 at 09:00 Family History Her brother age 37 of myocardial infarction. Father in his 40s of myocardial infarction. Social History The patient is a lifetime nonsmoker. She rarely has alcohol. Denies illicit drugs. Up to date on pneumonia and flu vaccine Physical Exam Vital Signs Vital Signs Date Time Temp Pulse Resp B/P Pulse Ox O2 Delivery O2 Flow Rate FiO2 02/09/17 09:21 117 16 97/59 100 Nasal Cannula 2 02/09/17 08:44 126 16 111/69 96 Room Air 02/09/17 07:30 95 Room Air 02/09/17 07:13 131 18 109/69 95 02/09/17 06:54 97 Nasal Cannula 2 02/09/17 06:54 140 20 109/64 02/09/17 06:36 130 Nasal Cannula 2 02/09/17 06:29 99.0 146 22 112/70 91 Room Air Physical Exam GENERAL: This is a well-nourished, well-developed patient, in no apparent distress. SKIN: No rashes, ecchymoses or lesions. Cool and dry. HEAD: Atraumatic. Normocephalic. No temporal or scalp tenderness. EYES: Pupils equal round and reactive. Extraocular motions intact. No scleral icterus. No injection or drainage. ENT: Nose without bleeding, purulent drainage or septal hematoma. Throat without erythema, tonsillar hypertrophy or exudate. Uvula midline. Airway patent. NECK: Trachea midline. No JVD or lymphadenopathy. Supple, nontender, no meningeal signs. CARDIOVASCULAR: S1 and S2, valvular click noted. RESPIRATORY: Coarse rhonchi, expiratory wheezes. Positive for sputum, kauffman- brown brown in color. GASTROINTESTINAL: Abdomen soft, non-tender, nondistended. No hepato-splenomegaly , or palpable masses. No guarding. MUSCULOSKELETAL: Extremities without clubbing, cyanosis, or edema. No joint tenderness, effusion, or edema noted. No calf tenderness. Negative Homans sign bilaterally. NEUROLOGICAL: Awake, alert oriented 3. No focal deficits. Laboratory Laboratory Tests Test 02/09/17 02/09/17 06:45 06:50 White Blood Count 16.0 Red Blood Count 4.97 Hemoglobin 13.4 Hematocrit 40.5 Mean Corpuscular Volume 81.4 Mean Corpuscular Hemoglobin 26.9 Mean Corpuscular Hemoglobin 33.0 Concent Red Cell Distribution Width 17.0 Platelet Count 367 Mean Platelet Volume 8.4 Neutrophils (%) (Auto) 81.9 Lymphocytes (%) (Auto) 7.0 Monocytes (%) (Auto) 10.6 Eosinophils (%) (Auto) 0.2 Basophils (%) (Auto) 0.3 Neutrophils # (Auto) 13.1 Lymphocytes # (Auto) 1.1 Monocytes # (Auto) 1.7 Eosinophils # (Auto) 0.0 Basophils # (Auto) 0.0 CBC Comment DIFF FINAL Differential Comment Prothrombin Time 62.3 Prothromb Time International 5.2 Ratio Activated Partial 47.8 Thromboplast Time Sodium Level 133 Potassium Level 3.4 Chloride Level 98 Carbon Dioxide Level 28.5 Anion Gap 7 Blood Urea Nitrogen 14 Creatinine 0.71 Estimat Glomerular Filtration 82 Rate Random Glucose 104 Calcium Level 9.0 Magnesium Level 1.8 Total Creatine Kinase 23 Troponin I LESS THAN 0.02 Lactic Acid Level 1.2 Date/Time Procedure Status Source Growth 02/09/17 06:50 Aerobic Blood Culture Received Blood Peripheral Pending 02/09/17 06:50 Anaerobic Blood Culture Received Blood Peripheral Pending Result Diagram: 02/09/1745 02/09/1745 Imaging Last Impressions Chest X-Ray 02/09/17 0643 Signed Impressions: Service Date/Time: , February 09, 2017 07:16 - CONCLUSION: 1. Scarring again noted with no definite acute cardiopulmonary disease. 2. Cardiomegaly and atherosclerotic changes. Nithin Cornell MD Assessment and Plan Problem List: (1) Sepsis (2) Atrial fibrillation with RVR (3) Supratherapeutic INR (4) S/P AVR (5) Hypothyroidism (6) ICD (implantable cardioverter-defibrillator) in place (7) Bronchitis (8) Failure of outpatient treatment Assessment and Plan Admitted to Dr. Castorena 66-year-old female with significant past medical history of paroxysmal A. fib, AICD, V. fib, aortic valve replacement on chronic anticoagulation. He presented to emergency room with complaint of palpitations, cough, sputum and shortness of breath. Was recently treated with antibiotic for 10 days without any relief of symptoms, started on Levaquin yesterday. Patient was noted tachycardic with leukocytosis. Sepsis, secondary to pulmonary process, possible bronchitis versus pneumonia Continue with antibiotics and follow cultures. Patient will be continued on Azactam, we will avoid any medications that can affect QT interval as patient is on Tikosyn. -Continue supplemental oxygen to keep sats greater or 92 -Start prednisone 20 mg by mouth daily DuoNeb's 4 times a day and when necessary Tessalon Perles 100 mg by mouth 3 times a day when necessary for cough We will obtain sputum for culture and sensitivity A. fib with RVR History of aortic valve replacement AICD -Continue with Justyna knight Appreciate cardiology input AICD has been interrogated, functioning appropriately Continue with Tikosyn -Continue Lopressor 50 mg by mouth twice a day -Coumadin on hold at this time due to elevated INR, resume when INR less than 3 Supratherapeutic INR Hold Coumadin Follow INR Pharmacy consultation History of aortic aneurysm repair History of thoracic aneurysm -Continue to monitor stable -Controlled blood pressure Hypertension, stable Continue home medication Home medications have been reviewed, initiated as indicated For DVT prophylaxis, we will continue Coumadin when INR less than 3 Plan of care has been discussed with the patient, attending and registered nurse. Further management of the patient will be dependent on the hospital course This patient was seen by myself and Dr. Castorena, this H&P is written on her behalf Physician Certification 2 Midnight Certification Type: Admission for Inpatient Services Order for Inpatient Services The services are ordered in accordance with Medicare regulations or non- Medicare payer requirements, as applicable. In the case of services not specified as inpatient-only, they are appropriately provided as inpatient services in accordance with the 2-midnight benchmark. Estimated LOS (days): 2 2 days is the estimated time the patient will need to remain in the hospital, assuming treatment plan goals are met and no additional complications. Post-Hospital Plan: Home Health Problem Qualifiers (1) Sepsis: Qualified Code: A41.9 - Sepsis, due to unspecified organism (2) Hypothyroidism: Qualified Code: E03.9 - Hypothyroidism, unspecified type Donna Longoria February 09, 2017 11:25
--- NOTE | 2017-02-09 11:28 | EC ---
Study Study Date:02/09/2017 STUDY CONCLUSIONS SUMMARY - Left ventricle: The cavity size was normal. Wall thickness was normal. Systolic function was normal. The estimated ejection fraction was in the range of 50% to 55%. Wall motion was normal; there were no regional wall motion abnormalities. The study is not technically sufficient to allow evaluation of LV diastolic function. - Aortic valve: A mechanical prosthesis was present. Cannot exclude vegetation. Cannot exclude a strand-like, mobile vegetation. Trace regurgitation. - Mitral valve: Moderate regurgitation. - Right atrium: The atrium was mildly dilated. - Tricuspid valve: Moderate regurgitation. - Pulmonary arteries: PA peak pressure: 43mm Hg (S). Recommendations: Cannot exclude small vegitation vs artifact near AVR. Clinical correlation recommended. Recommend BALTAZAR if clinical suspicion. If LV function is below 40, please consider prescribing an ACEI or ARB or document rationale for non-use. PROCEDURE DATA STUDY STATUS: Elective. Procedure: Transthoracic echocardiography. Image quality was good. Scanning was performed from the parasternal, apical, and subcostal acoustic windows. Study completion: The patient tolerated the procedure well. Transthoracic echocardiography. M-mode, complete 2D, complete spectral Doppler, and color Doppler. Patient status: Inpatient. CARDIAC ANATOMY LEFT VENTRICLE: The cavity size was normal. Wall thickness was normal. Systolic function was normal. The estimated ejection fraction was in the range of 50% to 55%. Wall motion was normal; there were no regional wall motion abnormalities. The study is not technically sufficient to allow evaluation of LV diastolic function. AORTIC VALVE: Poorly visualized. Normal thickness leaflets. A mechanical prosthesis was present. Cannot exclude vegetation. Cannot exclude a strand-like, mobile vegetation. Noted in LVOT only during sytstole and may be artifact or fibring starnds from metallic valve. Doppler: Transvalvular velocity was within the normal range. There was no stenosis. Trace regurgitation. Mean gradient: 11mm Hg (S). Peak gradient: 30mm Hg (S). AORTA: Aortic root: The aortic root was normal in size. MITRAL VALVE: Structurally normal valve. Doppler: Transvalvular velocity was within the normal range. There was no evidence for stenosis. Moderate regurgitation. LEFT ATRIUM: The atrium was normal in size. RIGHT VENTRICLE: The cavity size was normal. Wall thickness was normal. Pacer wire or catheter noted in right ventricle. PULMONIC VALVE: Doppler: Transvalvular velocity was within the normal range. There was no evidence for stenosis. No regurgitation. TRICUSPID VALVE: Structurally normal valve. Doppler: Transvalvular velocity was within the normal range. Moderate regurgitation. PULMONARY ARTERY: The main pulmonary artery was normal-sized. Systolic pressure was within the normal range. RIGHT ATRIUM: The atrium was mildly dilated. Pacer wire or catheter noted in right atrium. PERICARDIUM: There was no pericardial effusion. SYSTEMIC VEINS: Inferior vena cava: The vessel was dilated; the respirophasic diameter changes were blunted (< 50%); findings are consistent with elevated central venous pressure. BASIC MEASUREMENTS ADULT Normal Left ventricle LV internal dimension, ED, chordal level, *40.4 mm 43-52 PLAX LV internal dimension, ES, chordal level, 33 mm 23-38 PLAX Fractional shortening, chordal level, PLAX *18 % >29 LV posterior wall thickness, ED 6.32 mm IVS/LVPW ratio, ED *1.87 <1.3 Ventricular septum Septal thickness, ED 11.8 mm Left atrium Anterior-posterior dimension 38 mm Right ventricle RV internal dimension, ED, PLAX 20.2 mm 19-38 DOPPLER MEASUREMENTS ADULT Normal Main pulmonary artery Pressure, S *43 mm Hg =30 Aortic valve Peak velocity, S 273 cm/s Mean velocity, S 152 cm/s VTI, S 38.4 cm Mean gradient, S 11 mm Hg Peak gradient, S 30 mm Hg Mitral valve Peak E-wave velocity 53.3 cm/s Maximal regurgitant velocity 528 cm/s Tricuspid valve Regurgitant peak velocity 287 cm/s Peak RV-RA gradient, S 33 mm Hg Maximal regurgitant velocity 287 cm/s Systemic veins Estimated CVP 10 mm Hg Right ventricle RV pressure, S *43 mm Hg <30 LEGEND: Mean values are shown as u=mean value. Asterisk (*) benites values outside specified normal range. Prepared and signed by Jaylon Martínez [id number]
[2017-02-09] MEDS ORDERED: RESP: ALBUTEROL 2.5 MG/IPRATROPIUM 0.5 MG NEB (PRN) NEB (11:30)
--- NOTE | 2017-02-09 11:33 | MB ---
cc: MAURILIO NIELSEN M.D., MARIA I. M.D. DATE OF CONSULTATION February 09, 2017. REASON FOR CONSULTATION Atrial fibrillation with rapid ventricular response and hypotension. HISTORY Ms. Cleary is a 66-year-old pleasant white female with longstanding history of paroxysmal atrial fibrillation, successfully treated with Tikosyn. Over the past 10 days she has been feeling ill with a productive cough but denies fevers, chills or night sweats. She was treated with antibiotics on an outpatient basis without improvement and was receiving Levaquin. She came to the hospital for further evaluation, continues to have a productive cough. She denies any chest pains or shortness of breath. She has been taking all of her medication as directed. She was found to be in a atrial fibrillation with a rapid ventricular response on arrival. She was given some intravenous diltiazem 15 mg followed by an infusion but became hypotensive with blood pressures down in the 90s and no additional boluses were given and her heart rate was still sustained in the 120-135 range. MEDICATIONS 1. Aztreonam IV q.8 hours. 2. Aspirin 81 mg daily. 3. Dofetilide 250 mcg b.i.d. 4. Synthroid 75 mcg daily. 5. Lopressor 50 mg p.o. b.i.d. 6. Zoloft 50 mg daily. 7. Torsemide 5 mg daily. 8. Detrol LA 2 mg daily. 9. She is currently receiving intravenous diltiazem at 10 mg an hour, received a 15 mg bolus on arrival. 10. Received potassium bicarbonate 25 mEq x 1 this morning p.o. ALLERGIES ROCEPHIN causes a rash. PAST MEDICAL HISTORY 1. Coronary artery disease with left main aneurysm. 2. Atypical Mycobacterium avium pneumonia. 3. 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 The arrest occurred a few days after her thoracic aortic aneurysm surgery, she tells me. 4. Aortic insufficiency status post aortic valve replacement back in the late . 5. Hypothyroidism on replacement. 6. Hypertension. 7. Thoracic aortic aneurysms. 8. Paroxysmal atrial fibrillation. 9. Myositis. 10. Hepatic cysts. 11. Gastritis. 12. Dermatitis. 13. Osteopenia. PAST SURGICAL HISTORY 1. The patient had aortic valve replacement with a [employer] mechanical valve back around 1997. 2. Subsequently had an ascending aortic aneurysm repair in 2005. 3. She has an ICD implant which she tells me has not given her any shocks or therapies since implant in 2005 or 2006. FAMILY HISTORY Not contributory. SOCIAL HISTORY The patient denies tobacco, alcohol or illicit drug use. REVIEW OF SYSTEMS Denies lower extremity edema or claudication. Denies fevers, chills, night sweats. Denies any bleeding or clotting disorders. Except for that mentioned in the HPI, her complete 12-point review of systems is otherwise negative. PHYSICAL EXAMINATION GENERAL: A middle-age white female in mild distress, coughing with productive sputum. VITAL SIGNS: Blood pressure 109/64 mmHg, heart rate is 130 and irregular, respiratory rate 20, temperature 99, oxygen saturation 97% on 2 liters nasal cannula. HEENT: Head is normocephalic and atraumatic. Pupils equal, round, reactive to light. Sclerae anicteric. Extraocular movements intact. NECK: Supple. There is no adenopathies. There is no jugular venous distension at 30 degrees. Carotid upstrokes normal. No bruits. Thyroid exam is normal. LUNGS: Clear. HEART: PMI is not displaced. S1 and S2 are rapid and irregular. Bowel sounds are crisp. There is a grade 1-2/6 systolic murmur at the base. No diastolic murmurs, gallops or rubs. ABDOMEN: Benign. EXTREMITIES: No cyanosis, clubbing or edema. Pulses are +3-4 bilaterally throughout the lower extremities. There are no femoral bruits. EKG from arrival shows atrial fibrillation with a rapid ventricular response of 136 beats per minute. Abnormal EKG. CHEST X-RAY Shows scarring noted. No definite acute cardiopulmonary disease, cardiomegaly and atherosclerotic changes. LABORATORY DATA CBC: White count 16.0 hemoglobin 13.4, hematocrit 40.5, platelet count 367,000. INR is 5.2. Chemistries: Sodium 133, potassium 3.4, chloride 98, CO2 28.5, BUN 14, creatinine 0.71, lactic acid 1.2, glucose 104, magnesium 1.8, CPK 23. Troponin-I of less than 0.02. IMPRESSION 1. Paroxysmal atrial fibrillation with rapid ventricular response. 2. Acute bronchitis. 3. Hypertension, currently mildly hypotensive. 4. History of aortic insufficiency status post aortic valve mechanical prosthesis functioning normally. 5. History of thoracic aortic aneurysm status post repair in 2005. 6. History of ventricular arrhythmias and status post ICD implant, functioning normally. RECOMMENDATIONS The patient's defibrillator was interrogated and a short while ago and is showing normal function, good battery life and good pacing and sensing thresholds with no recent therapies. Charge time around 10 seconds. It does indicate that she has been in atrial fibrillation for the past 19 hours. The patient's medications including Tikosyn have been restarted. I did discuss with her the potential interaction with certain antibiotics and other drugs that we may need to use and possibly increasing risk of ventricular arrhythmias, but considering she has a defibrillator implanted, I think we can do this safely and continue close observation here on telemetry. We will repeat EKGs 8 hours to recheck her QT interval. Try and avoid antibiotics that would interfere with her Tikosyn if possible. Additionally, I have ordered a dose of magnesium 1 gram IV and a normal saline bolus of 500 mL followed by an attempted repeat bolus of diltiazem 15 mg to get better rate control. Continue intravenous diltiazem at 10 mg. I will follow her with you with further recommendations as needed. She will be transferred out of the emergency room where she currently is to the [facility] for intensive care unit for close observation. I have discussed the plans and the case with the patient and the nursing staff here in the emergency room. An echocardiogram is currently in progress. Thank you for allowing us to participate in the care of this patient. MD DAHIANA Lopez/REYNA /10:38 AM /11:01 AM
[2017-02-09] MEDS: RESP: ALBUTEROL 2.5 MG/IPRATROPIUM 0.5 MG NEB (SCH) NEB ×3 (12:15→20:06)
--- NOTE | 2017-02-09 12:44 | HHI.PR ---
Objective Objective Results - Vital Signs Date Time Temp Pulse Resp B/P Pulse Ox O2 Delivery O2 Flow Rate FiO2 02/09/17 09:21 117 16 97/59 100 Nasal Cannula 2 02/09/17 08:44 126 16 111/69 96 Room Air 02/09/17 07:30 95 Room Air 02/09/17 07:13 131 18 109/69 95 02/09/17 06:54 97 Nasal Cannula 2 02/09/17 06:54 140 20 109/64 02/09/17 06:36 130 Nasal Cannula 2 02/09/17 06:29 99.0 146 22 112/70 91 Room Air Result Diagram: 02/09/17 0645 02/09/1745 Imaging Last Impressions Chest X-Ray 02/09/1743 Signed Impressions: Service Date/Time: January 07:16 - CONCLUSION: 1. Scarring again noted with no definite acute cardiopulmonary disease. 2. Cardiomegaly and atherosclerotic changes. Nithin Cornell MD Other Results Laboratory Tests Test 02/09/17 02/09/17 06:45 06:50 White Blood Count 16.0 Red Blood Count 4.97 Hemoglobin 13.4 Hematocrit 40.5 Mean Corpuscular Volume 81.4 Mean Corpuscular Hemoglobin 26.9 Mean Corpuscular Hemoglobin 33.0 Concent Red Cell Distribution Width 17.0 Platelet Count 367 Mean Platelet Volume 8.4 Neutrophils (%) (Auto) 81.9 Lymphocytes (%) (Auto) 7.0 Monocytes (%) (Auto) 10.6 Eosinophils (%) (Auto) 0.2 Basophils (%) (Auto) 0.3 Neutrophils # (Auto) 13.1 Lymphocytes # (Auto) 1.1 Monocytes # (Auto) 1.7 Eosinophils # (Auto) 0.0 Basophils # (Auto) 0.0 CBC Comment DIFF FINAL Differential Comment Prothrombin Time 62.3 Prothromb Time International 5.2 Ratio Activated Partial 47.8 Thromboplast Time Sodium Level 133 Potassium Level 3.4 Chloride Level 98 Carbon Dioxide Level 28.5 Anion Gap 7 Blood Urea Nitrogen 14 Creatinine 0.71 Estimat Glomerular Filtration 82 Rate Random Glucose 104 Calcium Level 9.0 Magnesium Level 1.8 Total Creatine Kinase 23 Troponin I LESS THAN 0.02 Lactic Acid Level 1.2 Date/Time Procedure Status Source Growth 02/09/17 06:50 Aerobic Blood Culture Received Blood Peripheral Pending 02/09/17 06:50 Anaerobic Blood Culture Received Blood Peripheral Pending Physical Exam Physical Exam PHYSICAL EXAMINATION GENERAL: This is a well-developed, well-nourished female who appears to be in no acute distress. She is alert and awake, []. HEAD: Normocephalic without any lesion or mass noted. Facial features appear symmetric. EYES: Perrla, Normal eye movement, [] Icterus. [] Conj congestion. OROPHARYNGEAL: Oropharynx without erythema or edema. MOUTH/THROAT: Tongue midline []. Buccal mucosa is moist []. NECK: Supple. No nuchal rigidity or lymphadenopathy. Trachea midline without deviation. Thyroid not palpable, no bruits appreciated. CARDIAC: Regular rhythm, regular rate, S1 and S2 are heard. Murmur []; no gallops or rubs. LUNGS: Clear to auscultation bilaterally. [] wheeze, [] rhonchi or [] rale. No use of accessory muscles on inspiration or expiration. ABDOMEN: Soft, nontender, no organomegaly or masses. Bowel sounds are heard in all four quadrants. No rebound. No guarding. EXTREMITIES: [] edema. Pulses equal bilateral. [] cyanosis. NEUROLOGICAL: Patient mood and affect appropriate. Cranial nerves II through XII grossly intact. Muscle strength 5/5 in the upper and lower extremities bilaterally. Deep tendon reflexes are 2+ in the upper and lower extremities bilaterally. SKIN:Warm and moist PSYCH: Mood and affect appropriate A/P Assessment and Plan patient seen and examined Please refer to admission h & P for details A fib with RVR currently heart rate in 90s on diltiazem monitor BP appreciate Cardiology input INR 5.2 holding coumadin repeat INR in am s/p Magnesium continue Azactam for now on prednisone 20 labs in am plan of care discussed with patient , Donna SANDERSON no family at bed side Hanna Castorena MD February 09, 2017 12:44
[2017-02-09 14:16] LABS: BICARBONATE 26.6 MEQ/L (21.0-32.0); POTASSIUM 3.7 MEQ/L (3.5-5.1)
[2017-02-09] MEDS: predniSONE 20 MG TAB PO SCH (16:00)
--- NOTE | 2017-02-09 16:54 | EKG ---
Date Performed: 02/09/2017 Time Performed: 06:38:39 PTAGE: 66 years EKG: ATRIAL FIBRILLATION WITH RAPID VENTRICULAR RESPONSE VOLTAGE CRITERIA FOR LVH ABNORMAL ECG NO PREVIOUS TRACING Compared to the previous tracing, previously in normal Sinus rhythm DOCTOR: Brian Snyder Interpretating Date/Time 02/09/2017 16:52:47
[2017-02-09] MEDS: AZTREONAM INJ 1,000 MG in SODIUM CHLORIDE 0.9% INJ 100 ML IV SCH (16:55)
[2017-02-09] MEDS: BENZONATATE 100 MG CAP PO PRN (21:12)
[2017-02-10] VITALS (24 sets, daily range): BP systolic 92–131; BP diastolic 47–85; PULSE 80–138; RESP 16–20; TEMP 97.4–98.7; O2SAT 92–99
[2017-02-10] MEDS: AZTREONAM INJ 1,000 MG in SODIUM CHLORIDE 0.9% INJ 100 ML IV SCH ×4 (00:56→23:21)
[2017-02-10] MEDS: LEVOTHYROXINE SODIUM 75 MCG TAB PO SCH (05:13)
[2017-02-10] MEDS: BENZONATATE 100 MG CAP PO PRN ×3 (05:19→21:05)
[2017-02-10 06:33] LABS: AUTOMATED NEUTROPHIL # 13.5 TH/MM3 (1.8-7.7); BASOPHIL % 0.2 % (0.0-2.0); HEMATOCRIT 35.3 % (35.0-46.0); HEMO FLAGS DIFF FINAL; LYMPHOCYTE # 0.5 TH/MM3 (1.0-4.8); MEAN CELL VOLUME 81.9 FL (80.0-100.0); MEAN CORPUSCULAR HEMOGLOBIN 25.9 PG (27.0-34.0); MEAN CORPUSCULAR HGB CONC 31.7 % (32.0-36.0); MONO % 6.4 % (0.0-8.0); NEUT % 90.4 % (16.0-70.0); PLATELET COUNT 254 TH/MM3 (150-450); RED BLOOD COUNT 4.32 MIL/MM3 (4.00-5.30); RED CELL DISTRIBUTION WIDTH 16.8 % (11.6-17.2)
[2017-02-10 06:50] LABS: INTERNATIONAL NORMALIZED RATIO 5.4 RATIO; PROTHROMBIN TIME - PATIENT 63.8 SEC (9.8-11.6)
[2017-02-10 07:00] LABS: BICARBONATE 26.1 MEQ/L (21.0-32.0); POTASSIUM 4.5 MEQ/L (3.5-5.1)
[2017-02-10] MEDS: DILTIAZEM INJ 125 MG in SODIUM CHLORIDE 0.9% INJ 100 ML IV SCH (07:17)
[2017-02-10] MEDS: RESP: ALBUTEROL 2.5 MG/IPRATROPIUM 0.5 MG NEB (SCH) NEB ×4 (07:22→19:57)
[2017-02-10] MEDS: DOCUSATE SODIUM 50 MG/SENNA 8.6 MG TAB PO SCH ×2 (08:11→20:57)
[2017-02-10] MEDS: predniSONE 20 MG TAB PO SCH (08:12)
[2017-02-10] MEDS: SERTRALINE HCL 50 MG TAB PO SCH (08:12)
[2017-02-10] MEDS: ASPIRIN 81 MG CHEW TAB CHEW SCH (08:12)
[2017-02-10] MEDS: DOFETILIDE 250 MCG CAP PO SCH ×2 (08:13→20:57)
[2017-02-10] MEDS: TOLTERODINE TARTRATE 2 MG CAP LA PO SCH (08:13)
[2017-02-10] MEDS: FLUTICASONE 100 MCG/VILANTEROL 25 MCG INHALER INH SCH (08:14)
[2017-02-10] MEDS: METOPROLOL TARTRATE 50 MG TAB PO SCH ×3 (08:18→21:00)
[2017-02-10] MEDS: SODIUM CHLORIDE 0.9% FLUSH 10 ML FLUSH IV FLUSH SCH ×2 (08:19→20:58)
--- NOTE | 2017-02-10 10:37 | PD.CARD.PN ---
Subjective Subjective Remarks Ventricular rate improved but still in afib on IV diltiezem. Feeling better but still non-productive cough. Denies fever, chill, or skin rashes. No recent dental work. Denies ADHESIVE PRIMER or SOB. Objective Medications Current Medications Medications (Trade) Dose Ordered Sig/Han Route PRN Reason Start Time Stop Time Status Last Admin Dose Admin Diltiazem HCl/ Sodium Chloride (Cardizem Inj/NS Inj) 125 ml @ 0 mls/hr TITRATE IV 02/09/17 07:30 02/10/17 07:17 Sodium Chloride (NS Flush) 2 ml UNSCH PRN IV FLUSH FLUSH AFTER USING IV ACCESS 02/09/17 08:45 Sodium Chloride (NS Flush) 2 ml BID IV FLUSH 02/09/17 09:00 02/10/17 08:19 Acetaminophen (Tylenol) 650 mg Q4H PRN PO TEMP > 100.4 02/09/17 08:45 Naloxone HCl (Narcan Inj) 0.4 mg UNSCH PRN IV SEE LABEL COMMENTS 02/09/17 08:45 Senna/Docusate Sodium (Anitha-Colace) 1 tab BID PO 02/09/17 09:00 02/10/17 08:11 Magnesium Hydroxide (Milk Of Magnesia Liq) 30 ml Q12H PRN PO MILD - MODERATE CONSTIPATION 02/09/17 08:45 Sennosides (Senokot) 17.2 mg Q12H PRN PO MODERATE - SEVERE CONSTIPATION 02/09/17 08:45 Bisacodyl (Dulcolax Supp) 10 mg DAILY PRN RECTAL SEVERE CONSITIPATION 02/09/17 08:45 Lactulose 30 ml 30 ml DAILY PRN PO SEVERE CONSITIPATION 02/09/17 08:45 Aztreonam/Sodium Chloride (Azactam Inj/NS Inj) 100 ml @ 200 mls/hr Q8H IV 02/09/17 16:00 02/10/17 08:16 Aspirin (Aspirin Chew) 81 mg DAILY CHEW 02/09/17 09:00 02/10/17 08:12 Fluticasone/ Vilanterol (Breo Ellipta 100-25 Inh) 1 puff DAILY INH 02/09/17 09:00 02/10/17 08:14 Levothyroxine Sodium (Synthroid) 75 mcg DAILY@0600 PO 02/09/17 09:00 02/10/17 05:13 Sertraline HCl (Zoloft) 50 mg DAILY PO 02/09/17 09:00 02/10/17 08:12 Tolterodine Tartrate (Detrol La) 2 mg DAILY PO 02/09/17 09:00 02/10/17 08:13 Prednisone (Deltasone) 20 mg DAILY PO 02/09/17 12:00 02/10/17 08:12 Benzonatate 100 mg 100 mg TID PRN PO COUGH 02/09/17 11:30 02/10/17 05:19 Pharmacy Profile Note (Coumadin Consult Pharmacy) 0 ml @ 0 mls/hr UNSCH OTHER 02/09/17 11:30 Metoprolol Tartrate (Lopressor) 50 mg Q8HR PO 02/10/17 08:00 02/10/17 08:18 Dofetilide (Tikosyn) 500 mcg BID PO 02/10/17 09:00 02/10/17 08:13 Vital Signs / I&O Vital Signs Date Time Temp Pulse Resp B/P Pulse Ox O2 Delivery O2 Flow Rate FiO2 02/10/17 10:00 81 02/10/17 09:03 101 02/10/17 08:44 120 02/10/17 08:44 98.1 138 16 115/81 92 02/10/17 07:24 95 21 02/10/17 05:05 106 02/10/17 04:19 101 02/10/17 03:44 98.0 100 92/47 99 02/10/17 03:37 94 02/10/17 02:00 100 02/10/17 01:00 112 02/10/17 00:00 106 02/09/17 23:00 98.4 104 110/73 96 02/09/17 23:00 110 02/09/17 22:00 120 02/09/17 21:00 128 02/09/17 20:08 95 Nasal Cannula 3.00 02/09/17 20:00 114 02/09/17 19:00 97.7 130 112/50 94 02/09/17 19:00 124 02/09/17 15:51 95 Nasal Cannula 2.00 02/09/17 15:00 99.1 92 20 105/69 94 02/09/17 11:00 98.3 126 25 96/65 93 I/O 02/09/17 02/09/17 02/09/17 02/10/17 02/10/17 02/10/17 07:00 15:00 23:00 07:00 15:00 23:00 Intake Total 480 ml Output Total 700 ml Balance -220 ml Intake Oral 480 ml Output Urine Total 700 ml Physical Exam VSS, afebrile No JVD Lungs: scattered wheezes and rhonchi Heart: irreg, S1, S2, 1/6 LORELEI Ext: No C/C/E. Skin W & D, intact. Neuro: Non-focal. Laboratory Laboratory Tests Test 02/09/17 02/09/17 02/10/17 13:48 18:17 06:12 Sodium Level 137 MEQ/L 136 MEQ/L Potassium Level 3.7 MEQ/L 4.5 MEQ/L Chloride Level 103 MEQ/L 102 MEQ/L Carbon Dioxide Level 26.6 MEQ/L 26.1 MEQ/L Anion Gap 7 MEQ/L 8 MEQ/L Blood Urea Nitrogen 11 MG/DL 10 MG/DL Creatinine 0.65 MG/DL 0.48 MG/DL Estimat Glomerular Filtration 91 ML/MIN 129 ML/MIN Rate Random Glucose 110 MG/DL 129 MG/DL Calcium Level 8.4 MG/DL 8.5 MG/DL Troponin I LESS THAN 0.02 LESS THAN 0.02 NG/ML NG/ML White Blood Count 15.0 TH/MM3 Red Blood Count 4.32 MIL/MM3 Hemoglobin 11.2 GM/DL Hematocrit 35.3 % Mean Corpuscular Volume 81.9 FL Mean Corpuscular Hemoglobin 25.9 PG Mean Corpuscular Hemoglobin 31.7 % Concent Red Cell Distribution Width 16.8 % Platelet Count 254 TH/MM3 Mean Platelet Volume 8.2 FL Neutrophils (%) (Auto) 90.4 % Lymphocytes (%) (Auto) 3.0 % Monocytes (%) (Auto) 6.4 % Eosinophils (%) (Auto) 0.0 % Basophils (%) (Auto) 0.2 % Neutrophils # (Auto) 13.5 TH/MM3 Lymphocytes # (Auto) 0.5 TH/MM3 Monocytes # (Auto) 1.0 TH/MM3 Eosinophils # (Auto) 0.0 TH/MM3 Basophils # (Auto) 0.0 TH/MM3 CBC Comment DIFF FINAL Differential Comment Prothrombin Time 63.8 SEC Prothromb Time International 5.4 RATIO Ratio Imaging EKG: today after AM Tikosyn 500 mg dose shows Afib with rate 92. QTc 462 mS Echo images reviewed. LVEF 65% AVR leaflets not well visualized. Probable reflection artifacts but cannot exclude vegetations.Trace AI Moderate MR/TR Assessment and Plan Problem List: (1) Paroxysmal atrial fibrillation with rapid ventricular response (2) Bronchitis (3) S/P AVR (4) Mitral regurgitation Assessment and Plan: Moderate severity. (5) Tricuspid regurgitation Assessment and Plan: Moderate severity. (6) Thoracic aortic aneurysm (7) History of thoracic aortic aneurysm repair Assessment and Plan Discussed current treatment and echo results with patient. She does not clinically appear to have SBE but will await culture results. RVR has improved on IV diltiezem. Increase dofetilide 500 mg BID in attemt to cardiovert back to NSR. Increase metoprolol 50 mg TID and wean off IV diltiezem. INR still above therapeutic will hold warfarin and allow to drift down to 2.5- 3.0 and restart. D/C ASA. Give NO Vit K unless there are bleeding complications. Continue Rx of brochitis/brochiectasis. Dr. Quiles will be covering over the weekend. 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 Jaylon Martínez MD February 10, 2017 10:37
--- NOTE | 2017-02-10 12:13 | HHI.PR ---
Subjective Interval History Awake alert and oriented still with cough, worse on laying on her back no fever Heart rate better controlled no chest pain no other complaints Vitals/Results Intake & Output 02/09/17 02/09/17 02/10/17 15:00 23:00 07:00 Intake Total 480 ml Output Total 700 ml Balance -220 ml Intake Oral 480 ml Output Urine Total 700 ml Vital Signs Vital Signs Date Time Temp Pulse Resp B/P Pulse Ox O2 Delivery O2 Flow Rate FiO2 02/10/17 11:14 98.0 94 16 131/85 95 02/10/17 11:14 90 02/10/17 10:00 81 02/10/17 09:03 101 02/10/17 08:44 120 02/10/17 08:44 98.1 138 16 115/81 92 02/10/17 07:24 95 21 02/10/17 05:05 106 02/10/17 04:19 101 02/10/17 03:44 98.0 100 92/47 99 02/10/17 03:37 94 02/10/17 02:00 100 02/10/17 01:00 112 02/10/17 00:00 106 02/09/17 23:00 98.4 104 110/73 96 02/09/17 23:00 110 02/09/17 22:00 120 02/09/17 21:00 128 02/09/17 20:08 95 Nasal Cannula 3.00 02/09/17 20:00 114 02/09/17 19:00 97.7 130 112/50 94 02/09/17 19:00 124 02/09/17 15:51 95 Nasal Cannula 2.00 02/09/17 15:00 99.1 92 20 105/69 94 CBC/BMP: 02/10/17 0612 02/10/17 0612 Lab Results Laboratory Tests Test 02/09/17 02/09/17 02/10/17 13:48 18:17 06:12 Sodium Level 137 MEQ/L 136 MEQ/L Potassium Level 3.7 MEQ/L 4.5 MEQ/L Chloride Level 103 MEQ/L 102 MEQ/L Carbon Dioxide Level 26.6 MEQ/L 26.1 MEQ/L Anion Gap 7 MEQ/L 8 MEQ/L Blood Urea Nitrogen 11 MG/DL 10 MG/DL Creatinine 0.65 MG/DL 0.48 MG/DL Estimat Glomerular Filtration 91 ML/MIN 129 ML/MIN Rate Random Glucose 110 MG/DL 129 MG/DL Calcium Level 8.4 MG/DL 8.5 MG/DL Troponin I LESS THAN 0.02 LESS THAN 0.02 NG/ML NG/ML White Blood Count 15.0 TH/MM3 Red Blood Count 4.32 MIL/MM3 Hemoglobin 11.2 GM/DL Hematocrit 35.3 % Mean Corpuscular Volume 81.9 FL Mean Corpuscular Hemoglobin 25.9 PG Mean Corpuscular Hemoglobin 31.7 % Concent Red Cell Distribution Width 16.8 % Platelet Count 254 TH/MM3 Mean Platelet Volume 8.2 FL Neutrophils (%) (Auto) 90.4 % Lymphocytes (%) (Auto) 3.0 % Monocytes (%) (Auto) 6.4 % Eosinophils (%) (Auto) 0.0 % Basophils (%) (Auto) 0.2 % Neutrophils # (Auto) 13.5 TH/MM3 Lymphocytes # (Auto) 0.5 TH/MM3 Monocytes # (Auto) 1.0 TH/MM3 Eosinophils # (Auto) 0.0 TH/MM3 Basophils # (Auto) 0.0 TH/MM3 CBC Comment DIFF FINAL Differential Comment Prothrombin Time 63.8 SEC Prothromb Time International 5.4 RATIO Ratio Microbiology Microbiology 02/09/17 Gram Stain - Final, Resulted 02/09/17 Sputum Culture - Preliminary, Resulted HEAVY GROWTH NORMAL RESPIRATORY KIRSTY... Assessment/Plan Assessment/Plan Physical Exam GENERAL: This is a well-nourished, well-developed patient, in no apparent distress. SKIN: No rashes, ecchymoses or lesions. Cool and dry. HEAD: Atraumatic. Normocephalic. No temporal or scalp tenderness. EYES: Pupils equal round and reactive. Extraocular motions intact. No scleral icterus. No injection or drainage. ENT: Nose without bleeding, purulent drainage or septal hematoma. Throat without erythema, tonsillar hypertrophy or exudate. Uvula midline. Airway patent. NECK: Trachea midline. No JVD or lymphadenopathy. Supple, nontender, no meningeal signs. CARDIOVASCULAR: S1 and S2, valvular click noted. RESPIRATORY: Coarse rhonchi, expiratory wheezes. Positive for sputum, kauffman- brown brown in color. GASTROINTESTINAL: Abdomen soft, non-tender, nondistended. No hepato-splenomegaly , or palpable masses. No guarding. MUSCULOSKELETAL: Extremities without clubbing, cyanosis, or edema. No joint tenderness, effusion, or edema noted. No calf tenderness. Negative Homans sign bilaterally. NEUROLOGICAL: Awake, alert oriented 3. No focal deficits Problem List: (1) Sepsis (2) Atrial fibrillation with RVR (3) Supratherapeutic INR (4) S/P AVR (5) Hypothyroidism (6) ICD (implantable cardioverter-defibrillator) in place (7) Bronchitis (8) Failure of outpatient treatment Assessment and Plan Admitted to Dr. Castorena 66-year-old female with significant past medical history of paroxysmal A. fib, AICD, V. fib, aortic valve replacement on chronic anticoagulation. He presented to emergency room with complaint of palpitations, cough, sputum and shortness of breath. Was recently treated with antibiotic for 10 days without any relief of symptoms, started on Levaquin yesterday. Patient was noted tachycardic with leukocytosis. possible bronchitis versus pneumonia Continue with Azactam, we will avoid any medications that can affect QT interval as patient is on Tikosyn. -Continue supplemental oxygen to keep sats greater or 92 DuoNeb's 4 times a day and when necessary Tessalon Perles 100 mg by mouth 3 times a day when necessary for cough sputum for culture and sensitivity A. fib with RVR History of aortic valve replacement AICD -Continue with Justyna knight Appreciate cardiology input AICD has been interrogated, functioning appropriately Continue with Tikosyn, dose increased -BB increased -ASA discontinued -Coumadin on hold at this time due to elevated INR, resume when INR less than 3 Supratherapeutic INR Hold Coumadin Follow INR Pharmacy consultation History of aortic aneurysm repair History of thoracic aneurysm -Continue to monitor stable -Controlled blood pressure Hypertension, stable Continue home medication Home medications have been reviewed, initiated as indicated For DVT prophylaxis, we will continue Coumadin when INR less than 3 plan of care discussed with patient, nursing staff labs in Hanna Diaz MD February 10, 2017 12:13
--- NOTE | 2017-02-10 14:25 | EKG ---
Date Performed: 02/09/2017 Time Performed: 16:20:36 PTAGE: 66 years EKG: Atrial fibrillation with rapid ventricular response. Lead(s) unsuitable for analysis: V3 Po ssible septal infarct - age undetermined Compared to prior tracing no significant change Abnormal ECG PREVIOUS TRACING : 02/09/2017 06.38 DOCTOR: Jay Ga Interpretating Date/Time 02/10/2017 14:21:48
[2017-02-10] MEDS ORDERED: METOCLOPRAMIDE HCL 10 MG/2 ML VIAL IV PUSH PRN (23:15)
[2017-02-11] VITALS (26 sets, daily range): BP systolic 96–148; BP diastolic 64–86; PULSE 58–102; RESP 12–20; TEMP 97.7–98.4; O2SAT 93–100
[2017-02-11] MEDS: LEVOTHYROXINE SODIUM 75 MCG TAB PO SCH (05:48)
[2017-02-11] MEDS: METOPROLOL TARTRATE 50 MG TAB PO SCH ×3 (05:48→21:25)
[2017-02-11 07:17] LABS: INTERNATIONAL NORMALIZED RATIO 3.9 RATIO; PROTHROMBIN TIME - PATIENT 45.6 SEC (9.8-11.6)
[2017-02-11 07:43] LABS: ALKALINE PHOSPHATASE 147 U/L (45-117); ALT (GPT) 41 U/L (10-53); ANION GAP 5 MEQ/L (5-15); AST (GOT) 46 U/L (15-37); BICARBONATE 29.4 MEQ/L (21.0-32.0); BLOOD UREA NITROGEN 10 MG/DL (7-18); CHLORIDE 104 MEQ/L (98-107); GLOMERULAR FILTRATION RATE 142 ML/MIN (>89); POTASSIUM 3.9 MEQ/L (3.5-5.1); SODIUM (NA) 138 MEQ/L (136-145); TOTAL BILIRUBIN ADULT 0.5 MG/DL (0.2-1.0)
[2017-02-11] MEDS: RESP: ALBUTEROL 2.5 MG/IPRATROPIUM 0.5 MG NEB (SCH) NEB ×4 (08:00→19:10)
--- NOTE | 2017-02-11 09:37 | PD.CARD.PN ---
Subjective Subjective Remarks Sitting up in chair. Feeling better. Had some nausea last night. Denies any chest pain or needs. Objective Medications Current Medications Medications (Trade) Dose Ordered Sig/Han Route Start Time Stop Time Status Last Admin (Cardizem Inj/NS Inj) 125 ml @ 0 mls/hr TITRATE IV 02/09/17 07:30 02/10/17 07:17 (NS Flush) 2 ml UNSCH PRN IV FLUSH 02/09/17 08:45 (NS Flush) 2 ml BID IV FLUSH 02/09/17 09:00 02/10/17 20:58 (Tylenol) 650 mg Q4H PRN PO 02/09/17 08:45 (Narcan Inj) 0.4 mg UNSCH PRN IV 02/09/17 08:45 (Anitha-Colace) 1 tab BID PO 02/09/17 09:00 02/10/17 20:57 (Milk Of Magnesia Liq) 30 ml Q12H PRN PO 02/09/17 08:45 (Senokot) 17.2 mg Q12H PRN PO 02/09/17 08:45 (Dulcolax Supp) 10 mg DAILY PRN RECTAL 02/09/17 08:45 Lactulose 30 ml 30 ml DAILY PRN PO 02/09/17 08:45 (Azactam Inj/NS Inj) 100 ml @ 200 mls/hr Q8H IV 02/09/17 16:00 02/10/17 23:21 (Breo Ellipta 100-25 Inh) 1 puff DAILY INH 02/09/17 09:00 02/10/17 08:14 (Synthroid) 75 mcg DAILY@0600 PO 02/09/17 09:00 02/11/17 05:48 (Zoloft) 50 mg DAILY PO 02/09/17 09:00 02/10/17 08:12 (Detrol La) 2 mg DAILY PO 02/09/17 09:00 02/10/17 08:13 (Deltasone) 20 mg DAILY PO 02/09/17 12:00 02/10/17 08:12 Benzonatate 100 mg 100 mg TID PRN PO 02/09/17 11:30 02/10/17 21:05 (Coumadin Consult Pharmacy) 0 ml @ 0 mls/hr UNSCH OTHER 02/09/17 11:30 (Lopressor) 50 mg Q8HR PO 02/10/17 08:00 02/11/17 05:48 (Tikosyn) 500 mcg BID PO 02/10/17 09:00 02/10/17 20:57 Vital Signs / I&O Vital Signs Date Time Temp Pulse Resp B/P Pulse Ox O2 Delivery O2 Flow Rate FiO2 02/11/17 08:13 97.7 66 20 117/73 02/11/17 06:00 88 02/11/17 05:00 70 02/11/17 04:00 102 02/11/17 03:00 98 02/11/17 03:00 98.3 95 18 106/74 98 02/11/17 02:00 96 02/11/17 01:00 92 02/11/17 00:00 90 02/10/17 23:00 97.4 107 20 109/84 96 02/10/17 23:00 116 02/10/17 22:00 124 02/10/17 21:00 128 02/10/17 20:00 112 02/10/17 20:00 95 02/10/17 19:00 104 02/10/17 19:00 98.3 115 18 106/71 96 02/10/17 18:23 98 02/10/17 17:03 93 02/10/17 16:05 107 02/10/17 15:31 98.7 97 16 124/77 97 02/10/17 15:31 98 02/10/17 14:01 95 02/10/17 13:02 80 02/10/17 12:24 99 02/10/17 11:14 98.0 94 16 131/85 95 02/10/17 11:14 90 02/10/17 10:00 81 I/O 02/10/17 02/10/17 02/10/17 02/11/17 02/11/17 02/11/17 07:00 15:00 23:00 07:00 15:00 23:00 Intake Total 480 ml 675 ml 425 ml Output Total 700 ml 400 ml 1400 ml Balance -220 ml 275 ml -975 ml Intake Oral 480 ml 600 ml 240 ml IV Total 75 ml 185 ml Output Urine Total 700 ml 400 ml 1400 ml # Bowel Movements 1 Physical Exam GENERAL: SKIN: Warm and dry. HEAD: Atraumatic. Normocephalic. EYES: Pupils equal and round. No scleral icterus. No injection or drainage. ENT: No nasal bleeding or discharge. Mucous membranes pink and moist. NECK: Trachea midline. No JVD. CARDIOVASCULAR: Regular rate and rhythm. Mechanical second heart sound. Systolic murmur over the apex. RESPIRATORY: No accessory muscle use. Clear to auscultation, diminished throughout. No wheezes. Breath sounds equal bilaterally. GASTROINTESTINAL: Abdomen soft, non-tender, nondistended. MUSCULOSKELETAL: Extremities without clubbing, cyanosis, or edema. No obvious deformities. NEUROLOGICAL: Awake and alert. No obvious cranial nerve deficits. Motor grossly within normal limits. Normal speech. PSYCHIATRIC: Appropriate mood and affect; insight and judgment normal. Laboratory Laboratory Tests Test 02/11/17 05:47 Prothrombin Time 45.6 SEC Prothromb Time International 3.9 RATIO Ratio Sodium Level 138 MEQ/L Potassium Level 3.9 MEQ/L Chloride Level 104 MEQ/L Carbon Dioxide Level 29.4 MEQ/L Anion Gap 5 MEQ/L Blood Urea Nitrogen 10 MG/DL Creatinine 0.44 MG/DL Estimat Glomerular Filtration 142 ML/MIN Rate Random Glucose 78 MG/DL Calcium Level 8.7 MG/DL Total Bilirubin 0.5 MG/DL Aspartate Amino Transf 46 U/L (AST/SGOT) Alanine Aminotransferase 41 U/L (ALT/SGPT) Alkaline Phosphatase 147 U/L Total Protein 6.6 GM/DL Albumin 2.5 GM/DL Assessment and Plan Problem List: (1) Paroxysmal atrial fibrillation with rapid ventricular response (2) Bronchitis (3) S/P AVR (4) Mitral regurgitation (5) Tricuspid regurgitation (6) Thoracic aortic aneurysm (7) History of thoracic aortic aneurysm repair Assessment and Plan Feeling better. Has converted to SR. Continue Tikosyn, metoprolol. QTc 458ms. Wean off Cardizem. Continue to monitor EKG for prolonged QTc. INR remains supratherapeutic - 3.9. Continue to hold coumadin, will restart when INR 2.5-3.0. Blood cultures are negative so far. Code Status Full Discussed Condition With Dr. Quiles and RN. Deonna Leiva February 11, 2017 09:37
[2017-02-11] MEDS: DOCUSATE SODIUM 50 MG/SENNA 8.6 MG TAB PO SCH ×2 (10:02→21:00)
[2017-02-11] MEDS: TOLTERODINE TARTRATE 2 MG CAP LA PO SCH (10:03)
[2017-02-11] MEDS: SERTRALINE HCL 50 MG TAB PO SCH (10:04)
[2017-02-11] MEDS: SODIUM CHLORIDE 0.9% FLUSH 10 ML FLUSH IV FLUSH SCH ×2 (10:04→21:00)
[2017-02-11] MEDS: predniSONE 20 MG TAB PO SCH (10:05)
[2017-02-11] MEDS: DOFETILIDE 250 MCG CAP PO SCH ×2 (10:05→21:25)
[2017-02-11] MEDS: AZTREONAM INJ 1,000 MG in SODIUM CHLORIDE 0.9% INJ 100 ML IV SCH ×2 (10:06→15:35)
[2017-02-11] MEDS: FLUTICASONE 100 MCG/VILANTEROL 25 MCG INHALER INH SCH (10:07)
--- NOTE | 2017-02-11 13:42 | HHI.PR ---
Subjective Interval History awake alert and oriented feeling much better cough improved heart rate controlled off cardizem GTT no other complaints no family at bed side ROS otherwise neg Vitals/Results Intake & Output 02/10/17 02/10/17 02/11/17 15:00 23:00 07:00 Intake Total 675 ml 425 ml Output Total 400 ml 1400 ml Balance 275 ml -975 ml Intake Oral 600 ml 240 ml IV Total 75 ml 185 ml Output Urine Total 400 ml 1400 ml # Bowel Movements 1 Vital Signs Vital Signs Date Time Temp Pulse Resp B/P Pulse Ox O2 Delivery O2 Flow Rate FiO2 02/11/17 13:00 72 02/11/17 12:00 70 02/11/17 11:00 66 02/11/17 11:00 98.3 58 20 148/86 100 02/11/17 10:00 76 02/11/17 09:00 80 02/11/17 08:13 97.7 66 20 117/73 02/11/17 08:00 82 02/11/17 07:00 82 02/11/17 06:00 88 02/11/17 05:00 70 02/11/17 04:00 102 02/11/17 03:00 98 02/11/17 03:00 98.3 95 18 106/74 98 02/11/17 02:00 96 02/11/17 01:00 92 02/11/17 00:00 90 02/10/17 23:00 97.4 107 20 109/84 96 02/10/17 23:00 116 02/10/17 22:00 124 02/10/17 21:00 128 02/10/17 20:00 112 02/10/17 20:00 95 02/10/17 19:00 104 02/10/17 19:00 98.3 115 18 106/71 96 02/10/17 18:23 98 02/10/17 17:03 93 02/10/17 16:05 107 02/10/17 15:31 98.7 97 16 124/77 97 02/10/17 15:31 98 02/10/17 14:01 95 CBC/BMP: 02/10/17 0612 02/11/17 0547 Lab Results Laboratory Tests Test 02/11/17 05:47 Prothrombin Time 45.6 SEC Prothromb Time International 3.9 RATIO Ratio Sodium Level 138 MEQ/L Potassium Level 3.9 MEQ/L Chloride Level 104 MEQ/L Carbon Dioxide Level 29.4 MEQ/L Anion Gap 5 MEQ/L Blood Urea Nitrogen 10 MG/DL Creatinine 0.44 MG/DL Estimat Glomerular Filtration 142 ML/MIN Rate Random Glucose 78 MG/DL Calcium Level 8.7 MG/DL Total Bilirubin 0.5 MG/DL Aspartate Amino Transf 46 U/L (AST/SGOT) Alanine Aminotransferase 41 U/L (ALT/SGPT) Alkaline Phosphatase 147 U/L Total Protein 6.6 GM/DL Albumin 2.5 GM/DL Assessment/Plan Assessment/Plan Physical Exam GENERAL: This is a well-nourished, well-developed patient, in no apparent distress. SKIN: No rashes, ecchymoses or lesions. Cool and dry. HEAD: Atraumatic. Normocephalic. No temporal or scalp tenderness. EYES: Pupils equal round and reactive. Extraocular motions intact. No scleral icterus. No injection or drainage. ENT: Nose without bleeding, purulent drainage or septal hematoma. Throat without erythema, tonsillar hypertrophy or exudate. Uvula midline. Airway patent. NECK: Trachea midline. No JVD or lymphadenopathy. Supple, nontender, no meningeal signs. CARDIOVASCULAR: Regular rate and rhythm. Mechanical second heart sound. Systolic murmur over the apex. RESPIRATORY: CTA GASTROINTESTINAL: Abdomen soft, non-tender, nondistended. No hepato-splenomegaly , or palpable masses. No guarding. MUSCULOSKELETAL: Extremities without clubbing, cyanosis, or edema. No joint tenderness, effusion, or edema noted. No calf tenderness. Negative Homans sign bilaterally. NEUROLOGICAL: Awake, alert oriented 3. No focal deficits Problem List: (1) Sepsis (2) Atrial fibrillation with RVR (3) Supratherapeutic INR (4) S/P AVR (5) Hypothyroidism (6) ICD (implantable cardioverter-defibrillator) in place (7) Bronchitis (8) Failure of outpatient treatment Assessment and Plan Admitted to Dr. Castorena 66-year-old female with significant past medical history of paroxysmal A. fib, AICD, V. fib, aortic valve replacement on chronic anticoagulation. He presented to emergency room with complaint of palpitations, cough, sputum and shortness of breath. Was recently treated with antibiotic for 10 days without any relief of symptoms, started on Levaquin yesterday. Patient was noted tachycardic with leukocytosis. possible bronchitis versus pneumonia continue Azactam, avoid any medications that can affect QT interval as patient is on Tikosyn. -start ceftin in am -Continue supplemental oxygen to keep sats greater or 92 DuoNeb's 4 times a day and when necessary Tessalon Perles 100 mg by mouth 3 times a day when necessary for cough sputum for culture and sensitivity A. fib with RVR History of aortic valve replacement AICD -off Cardizem drip Appreciate cardiology input AICD has been interrogated, functioning appropriately Continue with Tikosyn, dose increased -BB increased -ASA discontinued -Coumadin on hold at this time due to elevated INR, resume when INR less than 3 Supratherapeutic INR Hold Coumadin Follow INR Pharmacy consultation History of aortic aneurysm repair History of thoracic aneurysm -Continue to monitor stable -Controlled blood pressure Hypertension, stable Continue home medication Home medications have been reviewed, initiated as indicated For DVT prophylaxis, we will continue Coumadin when INR less than 3 plan of care discussed with patient, nursing staff labs in Hanna Castorena MD February 11, 2017 13:42
--- NOTE | 2017-02-11 15:50 | EKG ---
Date Performed: 02/10/2017 Time Performed: 04:47:12 PTAGE: 66 years EKG: Atrial fibrillation with rapid ventricular response Possible septal infarct - age undetermi jeremy Left ventricular hypertrophy by voltage only Abnormal ECG Since PREVIOUS TRACING 02/09/2017, no significant change. PREVIOUS TRACIN02/09/2017 16.20 DOCTOR: Derrick Garg Interpretating Date/Time 02/11/2017 15:49:42
--- NOTE | 2017-02-11 15:52 | EKG ---
Date Performed: 02/10/2017 Time Performed: 10:06:14 PTAGE: 66 years EKG: Atrial fibrillation. Cannot rule out septal infarct - age undetermined Left ventricular hyp ertrophy by voltage only Abnormal ECG Since PREVIOUS TRACING 02/10/2017, no significant change. PREVIOUS TRACIN02/10/2017 04.47 DOCTOR: Derrick Garg Interpretating Date/Time 02/11/2017 15:50:07
--- NOTE | 2017-02-11 15:52 | EKG ---
Date Performed: 02/10/2017 Time Performed: 22:54:46 PTAGE: 66 years EKG: Atrial fibrillation with rapid ventricular response QRS changes V3/V4 may be due to LVH but cannot rule out anterior infarct Left ventricular hypertrophy by voltage only Abnormal ECG Since PREVIOUS TRACING 02/10/2017, no significant change. PREVIOUS TRACIN02/10/2017 10.06 DOCTOR: Derrick Garg Interpretating Date/Time 02/11/2017 15:50:36
--- NOTE | 2017-02-11 15:54 | EKG ---
Date Performed: 02/11/2017 Time Performed: 02:57:38 PTAGE: 66 years EKG: Atrial fibrillation appears to have been replaced with atrial flutter with 2-1 conduction w ith a heart rate of 100. Poor initial anterior forces Since PREVIOUS TRACING 02/10/2017, there has been a regularization of the rhythm and it appear s to be a 2-1 AV conduction with atrial flutter. Clinical correlation is recommended. PREVIOUS TRACIN 02/10/2017 22.54 DOCTOR: Derrick Garg Interpretating Date/Time 02/11/2017 15:52:44
[2017-02-12] VITALS (28 sets, daily range): BP systolic 121–148; BP diastolic 65–95; PULSE 68–96; RESP 12–20; TEMP 97.8–98.5; O2SAT 93–100
[2017-02-12] MEDS: AZTREONAM INJ 1,000 MG in SODIUM CHLORIDE 0.9% INJ 100 ML IV SCH ×3 (00:19→15:34)
[2017-02-12 05:03] LABS: INTERNATIONAL NORMALIZED RATIO 2.1 RATIO; PROTHROMBIN TIME - PATIENT 23.4 SEC (9.8-11.6)
[2017-02-12] MEDS: LEVOTHYROXINE SODIUM 75 MCG TAB PO SCH (06:40)
[2017-02-12] MEDS: METOPROLOL TARTRATE 50 MG TAB PO SCH ×3 (06:40→21:03)
[2017-02-12] MEDS: RESP: ALBUTEROL 2.5 MG/IPRATROPIUM 0.5 MG NEB (SCH) NEB ×4 (07:47→20:05)
--- NOTE | 2017-02-12 09:06 | PD.CARD.PN ---
Subjective Subjective Remarks Sitting up in the chair. Feeling better. Denies any chest pain or complaints. Wanting to go home. Objective Medications Current Medications Medications (Trade) Dose Ordered Sig/Han Route Start Time Stop Time Status Last Admin (Cardizem Inj/NS Inj) 125 ml @ 0 mls/hr TITRATE IV 02/09/17 07:30 02/10/17 07:17 (NS Flush) 2 ml UNSCH PRN IV FLUSH 02/09/17 08:45 (NS Flush) 2 ml BID IV FLUSH 02/09/17 09:00 02/11/17 21:00 (Tylenol) 650 mg Q4H PRN PO 02/09/17 08:45 (Narcan Inj) 0.4 mg UNSCH PRN IV 02/09/17 08:45 (Anitha-Colace) 1 tab BID PO 02/09/17 09:00 02/11/17 10:02 (Milk Of Magnesia Liq) 30 ml Q12H PRN PO 02/09/17 08:45 (Senokot) 17.2 mg Q12H PRN PO 02/09/17 08:45 (Dulcolax Supp) 10 mg DAILY PRN RECTAL 02/09/17 08:45 Lactulose 30 ml 30 ml DAILY PRN PO 02/09/17 08:45 (Azactam Inj/NS Inj) 100 ml @ 200 mls/hr Q8H IV 02/09/17 16:00 02/12/17 00:19 (Breo Ellipta 100-25 Inh) 1 puff DAILY INH 02/09/17 09:00 02/11/17 10:07 (Synthroid) 75 mcg DAILY@0600 PO 02/09/17 09:00 02/12/17 06:40 (Zoloft) 50 mg DAILY PO 02/09/17 09:00 02/11/17 10:04 (Detrol La) 2 mg DAILY PO 02/09/17 09:00 02/11/17 10:03 (Deltasone) 20 mg DAILY PO 02/09/17 12:00 02/11/17 10:05 Benzonatate 100 mg 100 mg TID PRN PO 02/09/17 11:30 02/10/17 21:05 (Coumadin Consult Pharmacy) 0 ml @ 0 mls/hr UNSCH OTHER 02/09/17 11:30 (Lopressor) 50 mg Q8HR PO 02/10/17 08:00 02/12/17 06:40 (Tikosyn) 500 mcg BID PO 02/10/17 09:00 02/11/17 21:25 Vital Signs / I&O Vital Signs Date Time Temp Pulse Resp B/P Pulse Ox O2 Delivery O2 Flow Rate FiO2 02/12/17 08:00 80 02/12/17 07:49 96 21 02/12/17 07:30 97.9 88 20 148/89 95 02/12/17 06:00 78 02/12/17 05:00 72 02/12/17 04:00 82 02/12/17 03:00 77 02/12/17 03:00 98.1 88 12 146/95 95 02/12/17 02:00 82 02/12/17 01:00 88 02/12/17 00:00 80 02/11/17 23:00 98.0 77 12 130/81 93 02/11/17 23:00 93 02/11/17 22:00 94 02/11/17 21:00 86 02/11/17 20:00 94 02/11/17 19:00 89 02/11/17 19:00 98.1 92 18 96/64 95 02/11/17 18:02 89 02/11/17 17:00 78 02/11/17 16:00 86 02/11/17 15:30 98.4 85 20 122/73 96 02/11/17 15:00 80 02/11/17 14:00 76 02/11/17 13:00 72 02/11/17 12:00 70 02/11/17 11:00 66 02/11/17 11:00 98.3 58 20 148/86 100 02/11/17 10:00 76 02/11/17 09:00 80 I/O 02/11/17 02/11/17 02/11/17 02/12/17 02/12/17 02/12/17 07:00 15:00 23:00 07:00 15:00 23:00 Intake Total 425 ml 620 ml 340 ml Output Total 1400 ml 1700 ml 1250 ml Balance -975 ml -1080 ml -910 ml Intake Oral 240 ml 420 ml 240 ml IV Total 185 ml 200 ml 100 ml Output Urine Total 1400 ml 1700 ml 1250 ml # Bowel Movements 1 Physical Exam GENERAL: Awake, alert. No distress. SKIN: Warm and dry. HEAD: Atraumatic. Normocephalic. EYES: Pupils equal and round. No scleral icterus. No injection or drainage. ENT: No nasal bleeding or discharge. Mucous membranes pink and moist. NECK: Trachea midline. No JVD. CARDIOVASCULAR: Regular rate and rhythm. Mechanical second heart sound. Systolic murmur over the apex. RESPIRATORY: No accessory muscle use. Scattered rhonchi. No wheezes. Breath sounds equal bilaterally. Room air. GASTROINTESTINAL: Abdomen soft, non-tender, nondistended. MUSCULOSKELETAL: Extremities without clubbing, cyanosis, or edema. No obvious deformities. NEUROLOGICAL: Awake and alert. No obvious cranial nerve deficits. Motor grossly within normal limits. Normal speech. PSYCHIATRIC: Appropriate mood and affect; insight and judgment normal. Laboratory Laboratory Tests Test 02/12/17 04:38 Prothrombin Time 23.4 SEC Prothromb Time International 2.1 RATIO Ratio Assessment and Plan Problem List: (1) Paroxysmal atrial fibrillation with rapid ventricular response (2) Bronchitis (3) S/P AVR (4) Mitral regurgitation (5) Tricuspid regurgitation (6) Thoracic aortic aneurysm (7) History of thoracic aortic aneurysm repair Assessment and Plan Feeling better. Continues in SR. Continue Tikosyn, metoprolol. INR 2.1. Resume coumadin per pharmacy. Blood cultures are negative so far. Stable from cardiac standpoint. Will need to follow up with Dr. Tamayo 1-2 weeks. Code Status Full Discussed Condition With Dr. Quiles and RN. Deonna Leiva February 12, 2017 09:06
[2017-02-12] MEDS: TOLTERODINE TARTRATE 2 MG CAP LA PO SCH (09:11)
[2017-02-12] MEDS: predniSONE 20 MG TAB PO SCH (09:11)
[2017-02-12] MEDS: SERTRALINE HCL 50 MG TAB PO SCH (09:11)
[2017-02-12] MEDS: DOFETILIDE 250 MCG CAP PO SCH ×2 (09:12→21:03)
[2017-02-12] MEDS: DOCUSATE SODIUM 50 MG/SENNA 8.6 MG TAB PO SCH ×2 (09:13→21:00)
[2017-02-12] MEDS: SODIUM CHLORIDE 0.9% FLUSH 10 ML FLUSH IV FLUSH SCH ×2 (09:14→21:00)
--- NOTE | 2017-02-12 09:18 | HHI.PR ---
Subjective Subjective Remarks Increased coughing with sputum, blood-tinged, small amount Wheezing No fever No chest pain No abdominal pain, no diarrhea. had been refusing duonebs Review of Systems Constitutional Constitutional Remarks 12 point review of systems completed, negative except as noted above. Vitals/Results Intake & Output 02/11/17 02/11/17 02/12/17 15:00 23:00 07:00 Intake Total 620 ml 340 ml Output Total 1700 ml 1250 ml Balance -1080 ml -910 ml Intake Oral 420 ml 240 ml IV Total 200 ml 100 ml Output Urine Total 1700 ml 1250 ml # Bowel Movements 1 Vital Signs Vital Signs Date Time Temp Pulse Resp B/P Pulse Ox O2 Delivery O2 Flow Rate FiO2 02/12/17 08:00 80 02/12/17 07:49 96 21 02/12/17 07:30 97.9 88 20 148/89 95 02/12/17 06:00 78 02/12/17 05:00 72 02/12/17 04:00 82 02/12/17 03:00 77 02/12/17 03:00 98.1 88 12 146/95 95 02/12/17 02:00 82 02/12/17 01:00 88 02/12/17 00:00 80 02/11/17 23:00 98.0 77 12 130/81 93 02/11/17 23:00 93 02/11/17 22:00 94 02/11/17 21:00 86 02/11/17 20:00 94 02/11/17 19:00 89 02/11/17 19:00 98.1 92 18 96/64 95 02/11/17 18:02 89 02/11/17 17:00 78 02/11/17 16:00 86 02/11/17 15:30 98.4 85 20 122/73 96 02/11/17 15:00 80 02/11/17 14:00 76 02/11/17 13:00 72 02/11/17 12:00 70 02/11/17 11:00 66 02/11/17 11:00 98.3 58 20 148/86 100 02/11/17 10:00 76 CBC/BMP: 02/10/17 0612 02/11/17 0547 Lab Results Laboratory Tests Test 02/12/17 04:38 Prothrombin Time 23.4 SEC Prothromb Time International 2.1 RATIO Ratio Physical Exam General General Appearance: Well Developed, Well Nourished, No Acute Distress, Comfortable Eyes Eye Exam: Pupils Equal, Pupils Reactive Ears & Nose Ears & Nose Exam: Nasal Mucosa [place] Throat Throat Exam: Oral Mucosa [place] & Moist Neck Neck Exam: Neck Supple, Trachea Midline Pulmonary Resp Exam: Rhonchi, Sputum Resp Remarks Expiratory wheezes Cardiology CV Exam: Regular CV Remarks Valvular click Gastrointestinal/Abdomen GI Exam: Soft, Non-Tender, Bowel Sounds Present, Non-Distended Musculoskeletal MS Exam: Joints Intact Integumentary Skin Exam: Warm, Dry Extremeties Extremities Exam: No Edema, Pedal Pulses Palpable Neurologic Neuro Exam: Alert, Awake, Oriented, Speech Clear, Moving All Extremities, No Focal Deficits Psychiatric Psych Exam: Appropriate Responses VTE Prophylaxis VTE Prophylaxis Meds: Coumadin Assessment/Plan Assessment/Plan 66-year-old female with significant past medical history of paroxysmal A. fib, AICD, V. fib, aortic valve replacement on chronic anticoagulation. He presented to emergency room with complaint of palpitations, cough, sputum and shortness of breath. Was recently treated with antibiotic for 10 days without any relief of symptoms, started on Levaquin yesterday. Patient was noted tachycardic with leukocytosis. Possible bronchitis versus pneumonia -Continue Azactam, change to PO. Has allergies to Rocephin -Continue supplemental oxygen to keep sats greater or 92 DuoNeb's 4 times a day and when necessary Tessalon Perles 100 mg by mouth 3 times a day when necessary for cough sputum + GNR, sens. pending -Add Mucinex 600 mg PO BID -monitor sputum, blood tinged noted. A. fib with RVR History of aortic valve replacement AICD -off Justyna knight Appreciate cardiology input AICD has been interrogated, functioning appropriately Continue with Tikosyn, dose increased -BB increased -ASA discontinued -INR 2.1, resume coumadin, follow INR daily. Pharmacy consult -echo done, EF 50 to 55%, , artifact vs defect at AVR, BALTAZAR, defer to Dr. Tamayo Supratherapeutic INR Resume Coumadin Follow INR Pharmacy consultation History of aortic aneurysm repair History of thoracic aneurysm -Continue to monitor stable -Controlled blood pressure Hypertension, stable Continue home medication Coumadin for DVT prophylaxis Not ready for dc yet, still very congested. Labs in am D/W RN D/W Dr. Castorena D/W pt. This pt. was seen by myself and Dr. Castorena, this note is written on her behalf. Donna Longoria February 12, 2017 09:18
[2017-02-12] MEDS: guaiFENesin E.R. 600 MG TAB PO SCH ×2 (12:46→21:03)
[2017-02-12] MEDS: FLUTICASONE 100 MCG/VILANTEROL 25 MCG INHALER INH SCH (12:46)
--- NOTE | 2017-02-12 15:04 | EKG ---
Date Performed: 02/11/2017 Time Performed: 11:05:02 PTAGE: 66 years EKG: Demand atrial pacing Prolonged QT interval Possible septal infarct - age undetermined Left ventricular hypertrophy by voltage only Abnormal ECG PREVIOUS TRACING : 02/11/2017 02.57 Compared to previous tracing, the atrial flutter with 2:1 c onduction has been replaced with atrial pacing. DOCTOR: Derrick Garg Interpretating Date/Time 02/12/2017 15:01:54
[2017-02-12] MEDS: WARFARIN SOD 5 MG TAB PO SCH (15:34)
[2017-02-13] VITALS (28 sets, daily range): BP systolic 104–151; BP diastolic 72–97; PULSE 75–101; RESP 16–22; TEMP 97.9–98.5; O2SAT 91–99
[2017-02-13] MEDS: LEVOTHYROXINE SODIUM 75 MCG TAB PO SCH (06:41)
[2017-02-13] MEDS: METOPROLOL TARTRATE 50 MG TAB PO SCH ×3 (06:41→21:04)
[2017-02-13] MEDS: AZTREONAM INJ 1,000 MG in SODIUM CHLORIDE 0.9% INJ 100 ML IV SCH ×4 (07:55→15:08)
[2017-02-13] MEDS: FLUTICASONE 100 MCG/VILANTEROL 25 MCG INHALER INH SCH (07:56)
[2017-02-13] MEDS: SODIUM CHLORIDE 0.9% FLUSH 10 ML FLUSH IV FLUSH SCH ×2 (07:56→21:00)
[2017-02-13] MEDS: guaiFENesin E.R. 600 MG TAB PO SCH ×2 (07:57→21:04)
[2017-02-13] MEDS: predniSONE 10 MG TAB PO SCH (07:57)
[2017-02-13] MEDS: SERTRALINE HCL 50 MG TAB PO SCH (07:58)
[2017-02-13] MEDS: DOFETILIDE 250 MCG CAP PO SCH ×2 (07:58→21:05)
[2017-02-13] MEDS: DOCUSATE SODIUM 50 MG/SENNA 8.6 MG TAB PO SCH ×2 (07:58→21:00)
[2017-02-13] MEDS: TOLTERODINE TARTRATE 2 MG CAP LA PO SCH (07:59)
[2017-02-13 08:28] LABS: HEMATOCRIT 34.8 % (35.0-46.0); MEAN CELL VOLUME 81.1 FL (80.0-100.0); MEAN CORPUSCULAR HEMOGLOBIN 26.6 PG (27.0-34.0); MEAN CORPUSCULAR HGB CONC 32.8 % (32.0-36.0); PLATELET COUNT 287 TH/MM3 (150-450); RED BLOOD COUNT 4.29 MIL/MM3 (4.00-5.30); RED CELL DISTRIBUTION WIDTH 16.9 % (11.6-17.2); REVIEW FLAG FINAL; WHITE BLOOD COUNT 9.2 TH/MM3 (4.0-11.0)
[2017-02-13 08:37] LABS: INTERNATIONAL NORMALIZED RATIO 1.4 RATIO; PROTHROMBIN TIME - PATIENT 16.2 SEC (9.8-11.6)
[2017-02-13] MEDS: RESP: ALBUTEROL 2.5 MG/IPRATROPIUM 0.5 MG NEB (SCH) NEB (08:37)
[2017-02-13 09:00] LABS: BICARBONATE 27.8 MEQ/L (21.0-32.0); POTASSIUM 3.4 MEQ/L (3.5-5.1)
--- NOTE | 2017-02-13 10:23 | HHI.PR ---
Subjective Subjective Remarks very congested this morning, coughing, green sputum no sob with activity no cp overall feeling better except for cough no diarrhea no n/v eating okay Review of Systems Constitutional Constitutional Remarks 12 point review of systems completed, negative except as noted above. Vitals/Results Intake & Output 02/12/17 02/12/17 02/13/17 15:00 23:00 07:00 Intake Total 620 ml 440 ml Output Total 1900 ml 1650 ml Balance -1280 ml -1210 ml Intake Oral 420 ml 240 ml IV Total 200 ml 200 ml Output Urine Total 1900 ml 1650 ml # Bowel Movements 0 Vital Signs Vital Signs Date Time Temp Pulse Resp B/P Pulse Ox O2 Delivery O2 Flow Rate FiO2 02/13/17 10:04 94 02/13/17 09:00 92 02/13/17 08:39 99 21 02/13/17 08:06 98.1 96 20 140/97 98 02/13/17 08:00 96 02/13/17 07:00 95 02/13/17 06:00 92 02/13/17 05:00 84 02/13/17 04:00 78 02/13/17 03:00 98.2 85 16 138/96 94 02/13/17 03:00 83 02/13/17 02:00 92 02/13/17 01:00 82 02/13/17 00:00 94 02/12/17 23:00 97.8 77 14 121/65 95 02/12/17 23:00 86 02/12/17 22:00 92 02/12/17 21:00 96 02/12/17 20:00 94 02/12/17 19:00 95 02/12/17 19:00 98.3 77 14 138/80 98 02/12/17 18:11 90 02/12/17 17:29 92 02/12/17 16:00 92 02/12/17 15:46 93 21 02/12/17 15:41 98.5 87 18 128/81 96 02/12/17 15:00 86 02/12/17 14:00 94 02/12/17 13:15 68 02/12/17 12:00 92 02/12/17 11:30 98.1 86 20 131/86 100 02/12/17 11:00 86 CBC/BMP: 02/13/17 0739 02/13/17 0739 Lab Results Laboratory Tests Test 02/13/17 07:39 White Blood Count 9.2 TH/MM3 Red Blood Count 4.29 MIL/MM3 Hemoglobin 11.4 GM/DL Hematocrit 34.8 % Mean Corpuscular Volume 81.1 FL Mean Corpuscular Hemoglobin 26.6 PG Mean Corpuscular Hemoglobin 32.8 % Concent Red Cell Distribution Width 16.9 % Platelet Count 287 TH/MM3 Mean Platelet Volume 7.6 FL Prothrombin Time 16.2 SEC Prothromb Time International 1.4 RATIO Ratio Sodium Level 139 MEQ/L Potassium Level 3.4 MEQ/L Chloride Level 103 MEQ/L Carbon Dioxide Level 27.8 MEQ/L Anion Gap 8 MEQ/L Blood Urea Nitrogen 8 MG/DL Creatinine 0.48 MG/DL Estimat Glomerular Filtration 129 ML/MIN Rate Random Glucose 71 MG/DL Calcium Level 8.6 MG/DL Physical Exam General General Appearance: Well Developed, Well Nourished, No Acute Distress, Comfortable Eyes Eye Exam: Pupils Equal, Pupils Reactive Ears & Nose Ears & Nose Exam: Nasal Mucosa [place] Throat Throat Exam: Oral Mucosa [place] & Moist Neck Neck Exam: Neck Supple, Trachea Midline Pulmonary Resp Exam: Rhonchi, Sputum Resp Remarks Expiratory wheezes Cardiology CV Exam: Regular CV Remarks Valvular click Gastrointestinal/Abdomen GI Exam: Soft, Non-Tender, Bowel Sounds Present, Non-Distended Musculoskeletal MS Exam: Joints Intact Integumentary Skin Exam: Warm, Dry Extremeties Extremities Exam: No Edema, Pedal Pulses Palpable Neurologic Neuro Exam: Alert, Awake, Oriented, Speech Clear, Moving All Extremities, No Focal Deficits Psychiatric Psych Exam: Appropriate Responses VTE Prophylaxis VTE Prophylaxis Meds: Coumadin Assessment/Plan Problem List: (1) Sepsis (2) Bronchitis (3) Hx of aortic valve repair (4) S/P AVR (5) History of thoracic aortic aneurysm repair (6) Failure of outpatient treatment (7) Supratherapeutic INR (8) Atrial fibrillation with RVR (9) ICD (implantable cardioverter-defibrillator) in place (10) Hemoptysis (11) Hypothyroidism Assessment/Plan 66-year-old female with significant past medical history of paroxysmal A. fib, AICD, V. fib, aortic valve replacement on chronic anticoagulation. He presented to emergency room with complaint of palpitations, cough, sputum and shortness of breath. Was recently treated with antibiotic for 10 days without any relief of symptoms, started on Levaquin yesterday. Patient was noted tachycardic with leukocytosis. Possible bronchitis versus pneumonia -Continue Azactam, change to PO. Has allergies to Rocephin -Continue supplemental oxygen to keep sats greater or 92, on room air now, sats 98% DuoNeb's 4 times a day and when necessary Tessalon Perles 100 mg by mouth 3 times a day when necessary for cough sputum + GNR, sens. pending -continue Mucinex 600 mg PO BID -hemoptysis resolving -repeat cxr, 2 view today -may need one more day, improving A. fib with RVR History of aortic valve replacement AICD -off Justyna knight Appreciate cardiology input AICD has been interrogated, functioning appropriately Continue with Tikosyn, dose increased -BB increased -ASA discontinued -INR 1.4 today, continue Coumadin. Follow INR daily. Pharmacy consult -echo done, EF 50 to 55%, , artifact vs defect at AVR, BALTAZAR, defer to Dr. Tamayo Supratherapeutic INR Resume Coumadin Follow INR Pharmacy consultation History of aortic aneurysm repair History of thoracic aneurysm -Continue to monitor stable -Controlled blood pressure Hypertension, stable Continue home medication Coumadin for DVT prophylaxis f/u xray, give one more day D/W RN D/W Dr. Castorena D/W pt. This pt. was seen by myself and Dr. Castorena, this note is written on her behalf. Problem Qualifiers (1) Sepsis: Qualified Code: A41.9 - Sepsis, due to unspecified organism (2) Hypothyroidism: Qualified Code: E03.9 - Hypothyroidism, unspecified type Donna Longoria [facility] February 13, 2017 10:23
[2017-02-13] MEDS ORDERED: POTASSIUM CHLORIDE 25 MEQ EFFERVESCENT TAB PO ONE (10:30)
--- NOTE | 2017-02-13 11:03 | PD.CARD.PN ---
Subjective Subjective Remarks Sitting up in chair. Increased congestion. Not coughing anything up. Denies any chest pain, shortness of breath or palpitations. Objective Medications Current Medications Medications (Trade) Dose Ordered Sig/Han Route Start Time Stop Time Status Last Admin (Cardizem Inj/NS Inj) 125 ml @ 0 mls/hr TITRATE IV 02/09/17 07:30 02/10/17 07:17 (NS Flush) 2 ml UNSCH PRN IV FLUSH 02/09/17 08:45 (NS Flush) 2 ml BID IV FLUSH 02/09/17 09:00 02/13/17 07:56 (Tylenol) 650 mg Q4H PRN PO 02/09/17 08:45 (Narcan Inj) 0.4 mg UNSCH PRN IV 02/09/17 08:45 (Anitha-Colace) 1 tab BID PO 02/09/17 09:00 02/11/17 10:02 (Milk Of Magnesia Liq) 30 ml Q12H PRN PO 02/09/17 08:45 (Senokot) 17.2 mg Q12H PRN PO 02/09/17 08:45 (Dulcolax Supp) 10 mg DAILY PRN RECTAL 02/09/17 08:45 Lactulose 30 ml 30 ml DAILY PRN PO 02/09/17 08:45 (Azactam Inj/NS Inj) 100 ml @ 200 mls/hr Q8H IV 02/09/17 16:00 02/13/17 07:55 (Breo Ellipta 100-25 Inh) 1 puff DAILY INH 02/09/17 09:00 02/13/17 07:56 (Synthroid) 75 mcg DAILY@0600 PO 02/09/17 09:00 02/13/17 06:41 (Zoloft) 50 mg DAILY PO 02/09/17 09:00 02/13/17 07:58 (Detrol La) 2 mg DAILY PO 02/09/17 09:00 02/13/17 07:59 (Tessalon) 100 mg TID PRN PO 02/09/17 11:30 02/10/17 21:05 (Lopressor) 50 mg Q8HR PO 02/10/17 08:00 02/13/17 06:41 (Tikosyn) 500 mcg BID PO 02/10/17 09:00 02/13/17 07:58 (Mucinex Er) 600 mg BID PO 02/12/17 10:00 02/13/17 07:57 (Coumadin) 5 mg DAILY@16 PO 02/12/17 16:00 02/12/17 15:34 Prednisone 10 mg 10 mg DAILY PO 02/13/17 09:00 02/13/17 07:57 (Coumadin Consult Pharmacy) 0 ml @ 0 mls/hr UNSCH OTHER 02/12/17 16:00 Vital Signs / I&O Vital Signs Date Time Temp Pulse Resp B/P Pulse Ox O2 Delivery O2 Flow Rate FiO2 02/13/17 10:04 94 02/13/17 09:00 92 02/13/17 08:39 99 21 02/13/17 08:06 98.1 96 20 140/97 98 02/13/17 08:00 96 02/13/17 07:00 95 02/13/17 06:00 92 02/13/17 05:00 84 02/13/17 04:00 78 02/13/17 03:00 98.2 85 16 138/96 94 02/13/17 03:00 83 02/13/17 02:00 92 02/13/17 01:00 82 02/13/17 00:00 94 02/12/17 23:00 97.8 77 14 121/65 95 02/12/17 23:00 86 02/12/17 22:00 92 02/12/17 21:00 96 02/12/17 20:00 94 02/12/17 19:00 95 02/12/17 19:00 98.3 77 14 138/80 98 02/12/17 18:11 90 02/12/17 17:29 92 02/12/17 16:00 92 02/12/17 15:46 93 21 02/12/17 15:41 98.5 87 18 128/81 96 02/12/17 15:00 86 02/12/17 14:00 94 02/12/17 13:15 68 02/12/17 12:00 92 02/12/17 11:30 98.1 86 20 131/86 100 I/O 02/12/17 02/12/17 02/12/17 02/13/17 02/13/17 02/13/17 07:00 15:00 23:00 07:00 15:00 23:00 Intake Total 340 ml 620 ml 440 ml Output Total 1250 ml 1900 ml 1650 ml Balance -910 ml -1280 ml -1210 ml Intake Oral 240 ml 420 ml 240 ml IV Total 100 ml 200 ml 200 ml Output Urine Total 1250 ml 1900 ml 1650 ml # Bowel Movements 0 Physical Exam GENERAL: Awake, alert. No distress. SKIN: Warm and dry. HEAD: Atraumatic. Normocephalic. EYES: Pupils equal and round. No scleral icterus. No injection or drainage. ENT: No nasal bleeding or discharge. Mucous membranes pink and moist. NECK: Trachea midline. No JVD. CARDIOVASCULAR: Regular rate and rhythm. Mechanical second heart sound. Systolic murmur over the apex. RESPIRATORY: No accessory muscle use. Scattered rhonchi. No wheezes. Breath sounds equal bilaterally. Room air. GASTROINTESTINAL: Abdomen soft, non-tender, nondistended. MUSCULOSKELETAL: Extremities without clubbing, cyanosis, or edema. No obvious deformities. NEUROLOGICAL: Awake and alert. No obvious cranial nerve deficits. Motor grossly within normal limits. Normal speech. PSYCHIATRIC: Appropriate mood and affect; insight and judgment normal. Laboratory Laboratory Tests Test 02/13/17 07:39 White Blood Count 9.2 TH/MM3 Red Blood Count 4.29 MIL/MM3 Hemoglobin 11.4 GM/DL Hematocrit 34.8 % Mean Corpuscular Volume 81.1 FL Mean Corpuscular Hemoglobin 26.6 PG Mean Corpuscular Hemoglobin 32.8 % Concent Red Cell Distribution Width 16.9 % Platelet Count 287 TH/MM3 Mean Platelet Volume 7.6 FL Prothrombin Time 16.2 SEC Prothromb Time International 1.4 RATIO Ratio Sodium Level 139 MEQ/L Potassium Level 3.4 MEQ/L Chloride Level 103 MEQ/L Carbon Dioxide Level 27.8 MEQ/L Anion Gap 8 MEQ/L Blood Urea Nitrogen 8 MG/DL Creatinine 0.48 MG/DL Estimat Glomerular Filtration 129 ML/MIN Rate Random Glucose 71 MG/DL Calcium Level 8.6 MG/DL Assessment and Plan Problem List: (1) Paroxysmal atrial fibrillation with rapid ventricular response (2) Bronchitis (3) S/P AVR (4) Mitral regurgitation (5) Tricuspid regurgitation (6) Thoracic aortic aneurysm (7) History of thoracic aortic aneurysm repair Assessment and Plan Increased congestion. For repeat CXR today. Continues in SR. Continue Tikosyn , metoprolol. Coumadin resumed, INR 1.4. Blood cultures are negative so far. Dr. Martínez to follow tomorrow. Code Status Full Discussed Condition With Dr. Quiles and Deonna He February 13, 2017 11:03
--- NOTE | 2017-02-13 12:46 | RADRPT ---
EXAM DATE/TIME: 02/13/2017 12:23 [place] COMPARISON: CT PULMONARY ANGIOGRAM, September 16, 2014, 18:41. CHEST SINGLE AP, February 09, 2017, 7:16. CHEST PA & L AT, April 10, 2016, 9:22. INDICATIONS : Short of breath, cough, evaluate pnuemonia MEDICAL HISTORY : Chronic obstructive pulmonary disease. cardiovascular disease, aneurysm descending aorta SURGICAL HISTORY : Pacemaker. valve replaced, aneurysm repair ENCOUNTER: Subsequent ACUITY: 1 week PAIN SCORE: 0/10 LOCATION: Bilateral chest FINDINGS: Frontal and lateral views of the chest demonstrate a normal-sized cardiac silhouette with enlarged an eurysmal and tortuous thoracic aorta. Patient is post median sternotomy. Right chest wall cardiac pac ing device/AICD is present. There is mild airspace consolidation in the left lower lung zone. The pos sible patchy opacity in the right midlung zone. Lungs remain hyperinflated. No pleural effusion or pn eumothorax is seen. CONCLUSION: 1. Mild airspace consolidation in the left lower lung zone, new since the prior studies. There is als o questionable patchy airspace opacity in the right midlung zone. With the clinical history of cough this may represent an infectious process. Suggest followup to confirm resolution. 2. Aortic aneurysm appears similar to the prior examination. Jonathan Case MD on February 13, 2017 at 12:41 Board Certified Radiologist. This report was verified electronically.
[2017-02-13] MEDS ORDERED: ENOXAPARIN SODIUM 80 MG/0.8 ML SYRINGE SQ SCH (15:00)
[2017-02-13] MEDS: WARFARIN SOD 5 MG TAB PO SCH (15:08)
[2017-02-14] VITALS (18 sets, daily range): BP systolic 122–143; BP diastolic 80–99; PULSE 70–92; RESP 18–20; TEMP 95.6–98.2; O2SAT 93–96
[2017-02-14] MEDS: AZTREONAM INJ 1,000 MG in SODIUM CHLORIDE 0.9% INJ 100 ML IV SCH ×3 (00:25→14:52)
[2017-02-14] MEDS: ENOXAPARIN SODIUM 80 MG/0.8 ML SYRINGE SQ SCH ×2 (03:14→14:51)
[2017-02-14 04:32] LABS: INTERNATIONAL NORMALIZED RATIO 1.7 RATIO; PROTHROMBIN TIME - PATIENT 19.1 SEC (9.8-11.6)
[2017-02-14] MEDS: METOPROLOL TARTRATE 50 MG TAB PO SCH ×2 (06:29→14:51)
[2017-02-14] MEDS: LEVOTHYROXINE SODIUM 75 MCG TAB PO SCH (06:29)
[2017-02-14] MEDS ORDERED: DOFE250 PO (08:54)
[2017-02-14] MEDS ORDERED: ENOX80P SQ (08:54)
[2017-02-14] MEDS ORDERED: PRED10 PO (08:54)
[2017-02-14] MEDS ORDERED: BENZ100 PO (08:54)
[2017-02-14] MEDS ORDERED: METO-309 PO (08:54)
--- NOTE | 2017-02-14 08:55 | HHI.DCPOC ---
Discharge Care Plan Diagnosis: (1) Bronchitis (2) Hemoptysis (3) S/P AVR (4) Failure of outpatient treatment (5) Atrial fibrillation with RVR (6) Supratherapeutic INR Your Health Problems Are: Chest Pain Cough Shortness of Breath Goals to Promote Your Health * To prevent worsening of your condition and complications * To maintain your health at the optimal level Directions to Meet Your Goals Take your medications as prescribed Follow your dietary instruction Follow activity as directed Keep your appointments as scheduled Take your immunizations and boosters as scheduled If your symptoms worsen call your PCP, if no PCP go to Urgent Care Center or Emergency Room Smoking is Dangerous to Your Health. Avoid second hand smoke Call the 24-hour hour crisis hotline for domestic abuse at Donna Longoria [facility] February 14, 2017 08:55
--- NOTE | 2017-02-14 09:06 | HHI.PR ---
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 Vitals/Results Intake & Output 02/13/17 02/13/17 02/14/17 14:59 22:59 06:59 Intake Total 870 ml 340 ml Output Total 2000 ml 1750 ml Balance -1130 ml -1410 ml Intake Oral 670 ml 240 ml IV Total 200 ml 100 ml Output Urine Total 2000 ml 1750 ml # Bowel Movements 0 Vital Signs Vital Signs Date Time Temp Pulse Resp B/P Pulse Ox O2 Delivery O2 Flow Rate FiO2 02/14/17 03:00 98.2 75 18 135/90 96 02/13/17 23:00 98.5 96 18 132/89 95 02/13/17 23:00 93 02/13/17 22:00 88 02/13/17 21:00 86 02/13/17 20:00 94 02/13/17 19:00 93 02/13/17 19:00 98.2 91 22 151/89 91 02/13/17 18:08 91 02/13/17 17:03 101 02/13/17 16:02 96 02/13/17 15:30 97.9 96 20 104/72 98 02/13/17 15:00 96 02/13/17 14:09 81 02/13/17 13:02 83 02/13/17 12:01 97.9 89 20 150/97 98 02/13/17 12:00 92 02/13/17 11:00 90 02/13/17 10:04 94 CBC/BMP: 02/13/17 0739 02/13/17 0739 Lab Results Laboratory Tests Test 02/14/17 03:44 Prothrombin Time 19.1 SEC Prothromb Time International 1.7 RATIO Ratio Physical Exam General General Appearance: Well Developed, Well Nourished, No Acute Distress, Comfortable Eyes Eye Exam: Pupils Equal, Pupils Reactive Ears & Nose Ears & Nose Exam: Nasal Mucosa [place] Throat Throat Exam: Oral Mucosa [place] & Moist Neck Neck Exam: Neck Supple, Trachea Midline Pulmonary Resp Exam: Rhonchi, Sputum Resp Remarks Expiratory wheezes Cardiology CV Exam: Regular CV Remarks Valvular click Gastrointestinal/Abdomen GI Exam: Soft, Non-Tender, Bowel Sounds Present, Non-Distended Musculoskeletal MS Exam: Joints Intact Integumentary Skin Exam: Warm, Dry Extremeties Extremities Exam: No Edema, Pedal Pulses Palpable Neurologic Neuro Exam: Alert, Awake, Oriented, Speech Clear, Moving All Extremities, No Focal Deficits Psychiatric Psych Exam: Appropriate Responses VTE Prophylaxis VTE Prophylaxis Meds: Coumadin Assessment/Plan Problem List: (1) Sepsis (2) Bronchitis (3) Hx of aortic valve repair (4) S/P AVR (5) History of thoracic aortic aneurysm repair (6) Failure of outpatient treatment (7) Supratherapeutic INR (8) Atrial fibrillation with RVR (9) ICD (implantable cardioverter-defibrillator) in place (10) Hemoptysis (11) Hypothyroidism Assessment/Plan 66-year-old female with significant past medical history of paroxysmal A. fib, AICD, V. fib, aortic valve replacement on chronic anticoagulation. He presented to emergency room with complaint of palpitations, cough, sputum and shortness of breath. Was recently treated with antibiotic for 10 days without any relief of symptoms, started on Levaquin yesterday. Patient was noted tachycardic with leukocytosis. Possible bronchitis versus pneumonia -Continue Azactam -Continue supplemental oxygen to keep sats greater or 92, on room air now, sats 98% DuoNeb's 4 times a day and when necessary Tessalon Perles 100 mg by mouth 3 times a day when necessary for cough sputum + GNR, sens. pending -continue Mucinex 600 mg PO BID -PO steroids -hemoptysis resolving -cxr results noted -overall improving. A. fib with RVR History of aortic valve replacement AICD -off Justyna knight Appreciate cardiology input AICD has been interrogated, functioning appropriately Continue with Tikosyn, dose increased -BB increased -ASA discontinued -INR 1.7 today, continue Coumadin and Lovenox until INR therapeutic -echo done, EF 50 to 55%, , artifact vs defect at AVR, BALTAZAR. Mitral and tricuspic mod regurgitation. Wants to talk to Dr. Reyes Supratherapeutic INR Resume Coumadin Follow INR Pharmacy consultation History of aortic aneurysm repair History of thoracic aneurysm -Continue to monitor stable -Controlled blood pressure Hypertension, stable Continue home medication Coumadin/Lovenox for DVT prophylaxis poss dc today if card clears. RN to contact Dr. Reyes D/W RN D/W Dr. Castorena D/W pt. This pt. was seen by myself and Dr. Castorena, this note is written on her behalf. Problem Qualifiers (1) Sepsis: Qualified Code: A41.9 - Sepsis, due to unspecified organism (2) Hypothyroidism: Qualified Code: E03.9 - Hypothyroidism, unspecified type Donna Longoria February 14, 2017 09:06
[2017-02-14] MEDS: FLUTICASONE 100 MCG/VILANTEROL 25 MCG INHALER INH SCH (09:20)
[2017-02-14] MEDS: predniSONE 10 MG TAB PO SCH (09:20)
[2017-02-14] MEDS: SODIUM CHLORIDE 0.9% FLUSH 10 ML FLUSH IV FLUSH SCH (09:20)
[2017-02-14] MEDS: TOLTERODINE TARTRATE 2 MG CAP LA PO SCH (09:21)
[2017-02-14] MEDS: DOCUSATE SODIUM 50 MG/SENNA 8.6 MG TAB PO SCH (09:21)
[2017-02-14] MEDS: SERTRALINE HCL 50 MG TAB PO SCH (09:21)
[2017-02-14] MEDS: guaiFENesin E.R. 600 MG TAB PO SCH (09:21)
[2017-02-14] MEDS: DOFETILIDE 250 MCG CAP PO SCH (09:21)
[2017-02-14] MEDS ORDERED: AMOX500T2 PO (14:22)
[2017-02-14] MEDS: WARFARIN SOD 5 MG TAB PO SCH (14:52)
--- NOTE | 2017-02-14 17:19 | HHI.DS ---
Discharge Summary Admission Date February 09, 2017 at 08:42 Discharge Date: February 14, 2017 Admitting Diagnosis atrial fibrillation with RVR (1) Sepsis (2) Atrial fibrillation with RVR (3) Supratherapeutic INR (4) S/P AVR (5) Hypothyroidism (6) ICD (implantable cardioverter-defibrillator) in place (7) Bronchitis (8) Failure of outpatient treatment CBC/BMP: 02/13/17 0739 02/13/17 0739 Significant Findings Laboratory Tests Test 02/12/17 02/13/17 02/14/17 04:38 07:39 03:44 Prothrombin Time 23.4 SEC 16.2 SEC 19.1 SEC (9.8-11.6) (9.8-11.6) (9.8-11.6) Hemoglobin 11.4 GM/DL (11.6-15.3) Hematocrit 34.8 % (35.0-46.0) Mean Corpuscular Hemoglobin 26.6 PG (27.0-34.0) Potassium Level 3.4 MEQ/L (3.5-5.1) Creatinine 0.48 MG/DL (0.50-1.00) Random Glucose 71 MG/DL (74-106) Imaging Last Impressions Chest X-Ray 02/13/17 0000 Signed Impressions: Service Date/Time: Monday, February 13, 2017 12:23 - CONCLUSION: 1. Mild airspace consolidation in the left lower lung zone, new since the prior studies. There is also questionable patchy airspace opacity in the right midlung zone. With the clinical history of cough this may represent an infectious process. Suggest followup to confirm resolution. 2. Aortic aneurysm appears similar to the prior examination. Jonathan Case MD Hospital Course This a pleasant 66-year-old female with a history of descending thoracic aneurysm repair, aortic valve replacement on Coumadin, AICD placement, hypothyroid, hypertension, paroxysmal A. fib. Patient presented to the emergency room with complaint of palpitations since last night. Patient endorses that she was diagnosed with pneumonia 10 days ago, was put on a Medrol Dosepak and Zithromax. Indicates symptoms did not improve therefore she went back to her primary care who started her on Levaquin yesterday. Patient endorses feeling short of breath, has had a cough with sputum that is kauffman- brown.. No fever, no chills. Has had some nausea but no vomiting. Patient was evaluated in emergency room, laboratory workup was noted. CBC remarkable for leukocytosis, WBC 16. BMP remarkable for hyponatremia, sodium 133. Troponin was negative. Potassium 3.4. INR was supratherapeutic, 5.2. Patient was noted in A. fib with RVR, heart rate in the 140s. Cardizem 50 mg was given with blood pressure drop. She was given 500 cc bolus. Patient was eventually put on Cardizem drip. Patient is not evaluated in t the stepdown cardiac unit. Blood pressures in the 90s. Another 500 cc boluses currently in progress. Patient is on Tikosyn and has been on it since 2006 for A. fib. Because of possible interaction, Levaquin was not started. Patient was given Azactam in the emergency room which we will continue. Patient has been evaluated by Dr. Tamayo and her AICD has been interrogated and was found working appropriately. Patient is admitted for further evaluation and treatment. (1) Sepsis (2) Bronchitis (3) Hx of aortic valve repair (4) S/P AVR (5) History of thoracic aortic aneurysm repair (6) Failure of outpatient treatment (7) Supratherapeutic INR (8) Atrial fibrillation with RVR (9) ICD (implantable cardioverter-defibrillator) in place (10) Hemoptysis (11) Hypothyroidism During the course of the hospitalization, the following took place: 66-year-old female with significant past medical history of paroxysmal A. fib, AICD, V. fib, aortic valve replacement on chronic anticoagulation. He presented to emergency room with complaint of palpitations, cough, sputum and shortness of breath. Was recently treated with antibiotic for 10 days without any relief of symptoms, started on Levaquin yesterday. Patient was noted tachycardic with leukocytosis. Possible bronchitis versus pneumonia -Continue Azactam, changed to PO augmentin at dc. Pt. had tolerated Amoxicillin well before, no reported side effects. -put on supplemental oxygen to keep sats greater or 9, weaned off to RA, sats 98% DuoNeb's 4 times a day and when necessary Tessalon Perles 100 mg by mouth 3 times a day when necessary for cough sputum + GNR, sens. pending -continued Mucinex 600 mg PO BID -initially IV steroids, then changed to PO -hemoptysis resolved -cxr results noted, some improvement -improved, had residual cough, no fever. no SOB with activity. A. fib with RVR initially. History of aortic valve replacement AICD -required Cardizem drip Appreciate cardiology input AICD was interrogated, functioning appropriately Continue with Tikosyn, dose increased -BB increased -ASA discontinued -continued Coumadin -echo done, EF 50 to 55%, , artifact vs defect at AVR, BALTAZAR. Mitral and tricuspic mod regurgitation. Wants to talk to Dr. Reyes. She will f/u as OP Supratherapeutic INR went back to 2, restarted on Coumadin, then decreased to 1.7. -put on Lovenox for bridge. -discharged on Lovenox and Coumadin, pt. knew how to administer. -INR to be f/u at Dr. Reyes History of aortic aneurysm repair History of thoracic aneurysm -Continue to monitor, stable -Controlled blood pressure Hypertension, stable Continue home medication pt. improved, no fever, wbc stable Discharged home in stable condition continue with Lovenox and Coumadin until INR > 2 f/u Dr. Reyes, PCP diet-heart healthy activity-as tolerated Pt Condition on Discharge: Stable Discharge Disposition: Discharge Home Discharge Instructions DIET: Follow Instructions for: Heart Healthy Diet Activities you can perform: Regular-No Restrictions Follow up Referrals: Cardiology with Lilia Reyes MD PCP Follow-up New Medications: Amoxicillin-Clavulanate (Amoxicillin-Clavulanate) 500-125 mg Tab 500 MG PO TID Infection Days 7 Ref 0 TAB Benzonatate (Tessalon Perles) 100 Mg Cap 100 MG PO TID PRN COUGH #30 Ref 0 CAP Enoxaparin Inj (Lovenox Inj) 80 mg/0.8 ML Syr 63 MG SQ Q12H blood clot prevention #5 Ref 0 INJECTION Metoprolol Tartrate (Lopressor) 50 Mg Tab 50 MG PO Q8HR heart rate control #90 Ref 0 TAB Prednisone (Prednisone) 10 Mg Tab 10 MG PO DAILY Broncospasm #5 Ref 0 TAB Continued Medications: Aspirin (Aspirin) 81 Mg Chew 81 MG CHEW DAILY Ref 0 TAB Dofetilide (Tikosyn) 250 Mcg Cap 250 MCG PO BID For Creatinine Clearance 40-60 mL/min Regulate Heart Beat #60 Ref 0 CAP Fluticasone-Vilanterol Inh (Breo Ellipta Inh) 100-25 Mcg/Act Inh 1 PUFF INH DAILY Use daily at the same time. #1 Ref 0 INHALER Levothyroxine (Levothyroxine) 75 Mcg Tab 75 MCG PO DAILY Thyroid #30 Ref 0 TAB Metoprolol Tartrate (Metoprolol Tartrate) 50 Mg Tab 50 MG PO BID #60 Ref 0 TAB Oxybutynin ER 24 HR (Ditropan XL 24 HR) 5 Mg Tab 5 MG PO DAILY Urinary Symptom Managemen #30 Ref 0 TAB Sertraline (Sertraline) 50 Mg Tab 50 MG PO DAILY #30 Ref 0 TAB Torsemide (Torsemide) 5 Mg Tab 5 MG PO DAILY #30 Ref 0 TAB Warfarin (Warfarin) 5 Mg Tab 5 MG PO DAILY Blood Clot Prevention #30 Ref 0 TAB Donna Longoria [facility] February 14, 2017 17:19
== END 2017-02-14 16:08 | disposition home or self-care (01) | DRG 872 ==
LOC: NEPE 06:26 → NEDA 08:42 → HCIS 10:58
PROVIDERS: ADMIT Internal Medicine; ATTEND Internal Medicine
DX: A41.9 Sepsis, unspecified organism (principal); K76.89 Other specified diseases of liver; E87.1 Hypo-osmolality and hyponatremia; I48.0 Paroxysmal atrial fibrillation; R04.2 Hemoptysis; R79.1 Abnormal coagulation profile; R00.0 Tachycardia, unspecified; Z79.01 Long term (current) use of anticoagulants; M19.90 Unspecified osteoarthritis, unspecified site; I25.10 Atherosclerotic heart disease of native coronary artery without angina pectoris; I10 Essential (primary) hypertension; Z95.810 Presence of automatic (implantable) cardiac defibrillator; Z95.2 Presence of prosthetic heart valve; Z82.49 Family history of ischemic heart disease and other diseases of the circulatory system; Z88.1 Allergy status to other antibiotic agents; E03.9 Hypothyroidism, unspecified; Z86.79 Personal history of other diseases of the circulatory system; K29.70 Gastritis, unspecified, without bleeding; M85.80 Other specified disorders of bone density and structure, unspecified site; J20.9 Acute bronchitis, unspecified; I08.1 Rheumatic disorders of both mitral and tricuspid valves; R11.2 Nausea with vomiting, unspecified
CPT/HCPCS: 71010; 71020; 80048; 80053; 82550; 83605; 83735; 84484; 85025; 85027; 85610; 85730; 87040; 87070; 87077; 87186; 87205; 93005; 93306; 94640; 94664; 96374; J1650; J2765; J3475; J7030; J7040; J7512